=== PATIENT | male | born 1945 | race Asian ===

== ENCOUNTER 2017-01-22 13:26 | Inpatient (IN) ==
[2017-01-22] MEDS ORDERED: Furosemide 40 MG/4 ML VIAL IVP ONE (13:49)
--- NOTE | 2017-01-22 14:01 | Emergency Department Note ---
START Narrative - START START: I examined this patient and my medical decision-making was reviewed with the Resident Physician. I agree with the documented findings, disposition and treatment plan as described except to the extent set forth below. ED attending note: Patient seen with emergency medicine resident Dr. Caban. We independently evaluated the patient and had pbop-ir-zalo contact with the patient. Please see a copy of his note for details of the history and physical, evaluation, management and disposition of this emergency Department patient. Briefly: 71-year-old male presents with leg swelling and shortness of breath. History of volume overload from coronary artery bypass graft surgery done here at [facility] a short while ago. Patient is in poor peripheral IV candidate and is getting a midline ultrasound line. However due to the current nonavailability of beds, we will have discussion with the patient stating he wanted to transfer him. We will see where he would like to go and help make those arrangements. ED workup and transfer pending. Provided 30 minutes of critical care service for this patient.
--- NOTE | 2017-01-22 14:21 | Emergency Department Note ---
Disposition Clinical Impression: S/P CABG (coronary artery bypass graft), Bilateral pleural effusion, NSTEMI ( non-ST elevated myocardial infarction) Disposition: Admitted As Inpatient Condition: Fair Time of Disposition: 17:24 General Adult HPI - General Chief complaint: ED Chest Pain Stated complaint: "ankle swelling, recent by pass, sob" Time Seen by Provider: 01/22/17 14:20 Source: EMS Limitations: physical limitation Nursing Notes Reviewed: Yes Vital Signs Reviewed: Yes - History of Present Illness HPI Narrative: 71-year-old male history of CAD status post CABG with Dr. Espinoza 10 days ago, he also had bilateral thoracentesis for pleural effusions, presents bilateral lower ext swelling, worsening ankle swelling exertional dyspnea, patient states his pain is 4 out of 10 achiness bilateral legs, he is taking 20 mg of furosemide daily, he states that his swelling is worse, over last few days, he was [facility] after hospitalization, he also was most follow-up with Dr. Espinoza in outpatient setting but he has had worsening dyspnea, he denies productive cough or fever. Patient has some chest pain at his incisional site but otherwise no new chest pain Pt Subjective Complaint: Leg Swelling Onset (ago): hour(s) Location: lower extremity Pain Severity: moderate Pain Scale: 5 Quality: aching Improves with: nothing Worsens with: nothing Associated symptoms: Reports: chest pain, cough, malaise, shortness of breath. Denies: diaphoresis, nausea/vomiting - Related Data Previous Rx's Medication Instructions Recorded Aspirin Enteric Coated [Aspirin EC] 81 mg PO DAILY #60 tablet. 01/18/17 Atorvastatin [Lipitor] 80 mg PO HS #60 tablet 01/18/17 Clopidogrel [Plavix] 75 mg PO DAILY #30 tablet 01/18/17 MOM Conc [MILK OF MAGNESIA conc] 10 ml PO DAILY PRN ud.liq 01/18/17 Metoprolol [Lopressor] 12.5 mg PO BID #60 tablet 01/18/17 OxyCODONE/APAP 5/325 [Percocet 1 each PO Q4HR PRN #30 tablet 01/18/17 5/325 MG] Allergies Allergy/AdvReac Type Severity Reaction Status Date / Time No Known Allergies Allergy Verified 12/28/14 09:41 All systems ED: reviewed and negative except as stated. Review of Systems: As Per HPI Constitutional: Reports: as per HPI, weakness. Denies: fever, chills Eyes: Denies: eye pain ENT ED: Denies: ear pain Cardiovascular: Reports: chest pain Respiratory: Reports: as per HPI, dyspnea Gastrointestinal: Denies: abdominal pain, nausea Genitourinary: Denies: urgency, dysuria Musculoskeletal: Denies: back pain Integumentary: Denies: rash Neurological: Denies: headache Psychiatric: Denies: anxiety Past Medical History - Past Medical History Attestation: Yes The following information was validated with the patient. Source: patient, unable to obtain Medical history: Reports: hyperlipidemia, myocardial infarction, other Surgical history: Reports: orthopedic, other (Bilateral bunionectomy), other ( Hemorrhoidectomy) Psychiatric history: Reports: no psych history - Social History Smoking Status: Never smoker Smokeless Tobacco Status: No Alcohol use: Reports: none Drug use: Reports: none Physical Exam Constitutional: in NAD, conversational dyspnea Neck: normal inspection, neck is supple, no JVD Resp: normal chest inspection, diminished with bibasilar rales CV: RRR miudline icsion well healed Extremity: +2 bilateral radial and posterial tibial pulses, +3 pitting edema bilaterally GI: normal inspection, Soft, NTND, no peritoneal signs, no palpable abdominal aortic aneurysm Back: normal inspection, no tenderness to palpation Neuro: A&O3 PERRY MSK: normal inspection, bilateral UE and LE with normal ROM Skin: No rashes, skin warm, dry, intact - General Limitations: physical limitation General appearance: alert Course Course Narrative: 71-year-old male with recent CABG, presents volume overload bilateral pedal edema, conversational dyspnea chest pain CBC troponin BMP basic labs EKG is unremarkable, he has diminished lung sounds at bases I suspect that he has worsening pleural effusions again. - Reevaluation(s) Reevaluation #1: Admitted to Dr. Jackson Time: 17:23 - Consultations Consultation #1: I did discuss the case with Dr. Espinoza the cardiac thoracic surgeon he states that he would prefer to have the patient admitted as he just did open-heart surgery on the patient however if needed be may be transferred to another facility in [place]. After discussing this the hospitalist he again agrees that the patient warrants admission to edema given mother's bed shortage the patient will be placed on an ED hold, admitted to the hospitalist service with the cardiothoracic surgery consultation is yenniuresis with 40 Lasix his pain is in control at this time with morphine and Zofran, the patient has pleural effusions with no severe pericardial effusion Vital Signs Temperature 97.3 F L 01/22/17 13:28 Pulse Rate 73 01/22/17 13:28 Respiratory Rate 16 01/22/17 13:28 Blood Pressure 115/87 01/22/17 13:28 O2 Sat by Pulse Oximetry 93 01/22/17 13:28 Temperature 97.3 F L 01/22/17 13:28 Pulse Rate 68 01/22/17 14:28 Respiratory Rate 16 01/22/17 14:28 Blood Pressure 121/72 01/22/17 14:28 O2 Sat by Pulse Oximetry 96 01/22/17 14:28 Oxygen Delivery Oxygen Delivery Room Air Medical Decision Making - Medical Records Medical records reviewed: Yes I reviewed the patient's medical records. - Lab Data Lab results reviewed: Yes I reviewed the patient's lab results. Result diagrams: 01/22/17 14:04 01/22/17 14:04 Lab Results 01/22/17 01/22/17 01/22/17 Range/Units 14:04 14:04 14:04 WBC 11.3 H (4.3-11.1) K/mcL RBC 3.62 L (4.19-5.50) M/mcL Hgb 10.9 L (12.9-16.9) g/dL Hct 33.4 L (37.5-50.1) % MCV 92.3 (83.0-100.0) fL MCH 30.1 (28.0-33.3) pg MCHC 32.6 (31.6-35.5) g/dL RDW 14.4 (11.5-14.5) % Plt Count 326 D (140-400) K/mcL MPV 10.4 (9.4-12.4) fL Immature Gran % 0.6 (0-4) % Seg Neutrophils % 80.1 % Lymphocytes % 8.8 % Monocytes % 7.6 % Eosinophils % 2.4 % Basophils % 0.5 % Neutrophils # 9.1 H (1.6-8.9) K/mcL Lymphocytes # 1.0 (0.6-4.6) K/mcL Monocytes # 0.9 (0.0-1.3) K/mcL Eosinophils # 0.3 (0.0-0.6) K/mcL Basophils # 0.1 (0.0-0.2) K/mcL PT 13.9 H (9.4-12.1) Seconds INR 1.3 APTT 29.3 (26.0-36.0) Seconds Sodium (136-145) mEq/L Potassium (3.5-4.5) mEq/L Chloride (98-109) mEq/L Carbon Dioxide (19-29) mEq/L BUN (8-26) mg/dL Creatinine (0.72-1.25) mg/dL Est GFR ( Amer) (> 60) Est GFR (Non-Af Amer) (> 60) BUN/Creatinine Ratio (6-26) Glucose (70-99) mg/dL Calculated Osmolality (280-300) Calcium (8.6-10.8) mg/dL Troponin I (0-0.03) ng/mL B-Natriuretic Peptide 1258 H (0-100) pg/mL 01/22/17 01/22/17 Range/Units 14:04 14:04 WBC (4.3-11.1) K/mcL RBC (4.19-5.50) M/mcL Hgb (12.9-16.9) g/dL Hct (37.5-50.1) % MCV (83.0-100.0) fL MCH (28.0-33.3) pg MCHC (31.6-35.5) g/dL RDW (11.5-14.5) % Plt Count (140-400) K/mcL MPV (9.4-12.4) fL Immature Gran % (0-4) % Seg Neutrophils % % Lymphocytes % % Monocytes % % Eosinophils % % Basophils % % Neutrophils # (1.6-8.9) K/mcL Lymphocytes # (0.6-4.6) K/mcL Monocytes # (0.0-1.3) K/mcL Eosinophils # (0.0-0.6) K/mcL Basophils # (0.0-0.2) K/mcL PT (9.4-12.1) Seconds INR APTT (26.0-36.0) Seconds Sodium 131 L (136-145) mEq/L Potassium 4.3 (3.5-4.5) mEq/L Chloride 101 (98-109) mEq/L Carbon Dioxide 22 (19-29) mEq/L BUN 13 (8-26) mg/dL Creatinine 0.72 (0.72-1.25) mg/dL Est GFR ( Amer) > 60 (> 60) Est GFR (Non-Af Amer) > 60 (> 60) BUN/Creatinine Ratio 18 (6-26) Glucose 87 (70-99) mg/dL Calculated Osmolality 271 L (280-300) Calcium 8.3 L (8.6-10.8) mg/dL Troponin I 0.92 H* (0-0.03) ng/mL B-Natriuretic Peptide (0-100) pg/mL - Radiology Data Radiology results reviewed: Yes I reviewed the patient's radiology results. Chest X-Ray 01/22/17 13:47 IMPRESSION: 1. Bilateral pleural effusions left greater than right with left basilar atelectasis and/or infiltrate. 2. Cardiomegaly without overt failure. D/ / Duke Shell MD / Duke Shell MD Interpreting Provider: Duke Shell MD Chest CT 01/22/17 15:23 IMPRESSION: Bilateral pleural effusions with associated basilar airspace disease, left greater than right. Airspace disease likely represents atelectasis, however superimposed pneumonia is a consideration in the appropriate clinical setting. Fusiform ectasia of the ascending aorta, measuring up to 4.3 cm. This appears similar to the prior examination of 12/28/2014. Several subcentimeter pulmonary nodules as detailed above. These are unchanged from the 12/28/2014 study and are most compatible with a benign etiology. D/ / 01/22/2017 16:44:33 Logan Rasheed MD / ragini Interpreting Provider: Logan Rasheed MD - EKG Data EKG #1 EKG attestation: Yes I reviewed and interpreted this EKG. EKG shows normal: sinus rhythm Rate: normal (70 bpm [place] 151 QRS 97 QTc [address] segment elevations or depressions.) Rhythm: NSR [place]/QRS: normal - Core Measures AMI Core Measures Followed: No
[2017-01-22 14:23] LABS: INR 1.3; Prothrombin Time 13.9 Seconds (9.4-12.1)
[2017-01-22 14:25] LABS: Activated Partial Thrombo Time 29.3 Seconds (26.0-36.0)
[2017-01-22 14:26] LABS: BUN/Creatinine Ratio 18 (6-26); Blood Urea Nitrogen 13 mg/dL (8-26); Calcium 8.3 mg/dL (8.6-10.8); Carbon Dioxide 22 mEq/L (19-29); Chloride 101 mEq/L (98-109); Glucose 87 mg/dL (70-99); Osmolality,Calculated 271 (280-300); Potassium 4.3 mEq/L (3.5-4.5); Sodium 131 mEq/L (136-145); eGFR For African Americans > 60 (> 60); eGFR For Non-African Americans > 60 (> 60)
[2017-01-22 14:35] LABS: Basophils # 0.1 K/mcL (0.0-0.2); Basophils % 0.5 %; Eosinophils # 0.3 K/mcL (0.0-0.6); Eosinophils % 2.4 %; Hematocrit 33.4 % (37.5-50.1); Hemoglobin 10.9 g/dL (12.9-16.9); Immature Granulocytes % 0.6 % (0-4); Lymphocytes % 8.8 %; Mean Corpuscular HGB Conc 32.6 g/dL (31.6-35.5); Mean Corpuscular Hemoglobin 30.1 pg (28.0-33.3); Mean Corpuscular Volume 92.3 fL (83.0-100.0); Mean Platelet Volume 10.4 fL (9.4-12.4); Monocytes # 0.9 K/mcL (0.0-1.3); Monocytes % 7.6 %; Neutrophils # 9.1 K/mcL (1.6-8.9); Platelet Count 326 K/mcL (140-400); Red Blood Count 3.62 M/mcL (4.19-5.50); Red Cell Distribution Width 14.4 % (11.5-14.5); Segmented Neutrophils % 80.1 %
[2017-01-22] MEDS ORDERED: Naloxone 0.4 MG/ML INJ IVP PRN ×2 (16:06→16:07)
[2017-01-22] MEDS ORDERED: Acetaminophen 325 MG TABLET PO PRN (16:07)
[2017-01-22] MEDS ORDERED: Ondansetron 4 MG/2 ML VIAL IVP PRN (16:07)
[2017-01-22] MEDS ORDERED: *HR* Promethazine 25 MG/ML VIAL IVP PRN (16:07)
[2017-01-22] MEDS ORDERED: Ondansetron 4 MG/2 ML VIAL IVP ONE (16:09)
[2017-01-22] MEDS ORDERED: *HR* Morphine 2 MG/ML SYRINGE IVP ONE (16:09)
[2017-01-22] MEDS ORDERED: Aspirin 325 MG TABLET PO ONE (17:24)
--- NOTE | 2017-01-22 17:56 | Internal Med History&Physical ---
Date of Encounter: 01/22/17 Time of Encounter: 17:52 Assessment and Plan (1) Diastolic CHF, acute on chronic Current visit: Yes Status: Acute Will admit the pt into Tele Reviewed his 2 D Echo fro 01/11 before CABG - showed LVEF 55-60%, Mild diastolic CHF Will start him on IV diuresis with Lasix 40mg BID strict I & O CTS consulted He was Metoprolol before.. will switch him to PO Coreg also will start him on low dose ACEI if his BP allows cont ASA + Statin (2) NSTEMI (non-ST elevated myocardial infarction) Current visit: Yes Status: Acute Mostly demand ischemia No acute ischemic EKG changes Reviewed EKG by pepito - TYR HR 70, No ST elevation or depression will get 2 D Echo in AM cont trending on Troop no need of anti coag at this point (3) Pneumonia Current visit: Yes Status: Acute His CT shoed b/l lower lobe infiltrates he dies have cough with yellowish expectoration Mostly bacterial PNA will start him on empirical abx Levaquin and monitor his symptoms closely will place him on O2 + bronco dilators PRN Qualifiers: Qualified Code(s): J18.9 - Pneumonia, unspecified organism (4) Chest pain Current visit: No Status: Acute see above Qualifiers: Chest pain type: unspecified Qualified Code(s): R07.9 - Chest pain, unspecified (5) Hyperlipidemia Current visit: No Status: Acute on statin Qualifiers: Hyperlipidemia type: mixed hyperlipidemia Qualified Code(s): E78.2 - Mixed hyperlipidemia (6) S/P CABG (coronary artery bypass graft) Current visit: Yes Status: Acute Recent CABG x 4 consulted CTS will get 2 D Echo (7) Bilateral pleural effusion Current visit: Yes Status: Acute Due to CHF exacerbation recent s/p b/l thoracocentesis on 01/16 no need of thoracocentesis now cont IV diuresis cont close monitoring Internal Medicine - H&P: HPI Chief complaint: Shortness of breath Admitted From: Emergency Dept Plans for Post Hospital Care: Transfer Inp Rehab Fac History of present illness: Mr. San is a 71 year old male with known pMH of HTN, HLD, CAD recent s/p CABG x 4 01/12/17, mild diastolic CHF , who also happened to have large b/l pleural effusion for which he had b/l thorcocentesis done on 01/16/17 and d/c d SNF for short term PT / OT. Now he is brought back to ER c/o progressively worsening SOB , MCDONNELL and 3+ pitting in edema in both legs. He also mentioned some mild intermittent chest pain located in the mid sternal region, non radiating 4/10 in severity. Denied any active CP now. He had further work up done in the ER, his Troponin slightly elevated at 0.[address] of chest showed vascular congestion, b/l pleural effusion and b/l lower lobe infiltrates. He also mentioned intermittent cough with greenish and yellowish expectoration. Past Med Surg Social Fam HX - Past Medical History Medical history: hyperlipidemia, hypertension, myocardial infarction, other Psychiatric history: no psych history - Past Surgical History Surgical History: coronary bypass (CABG), orthopedic, other (Bilateral bunionectomy), other (Hemorrhoidectomy) - Social History Smoking Status: Never smoker Smokeless Tobacco Status: No Alcohol use: none Drug use: none - Family History Mother Living Status: Hx Family Cardiac Disorders: Yes (CAD/OR) Father Living Status: Hx Family Cardiac Disorders: Yes Hx Family Cancer: Yes (colon cancer) Brother Living Status: Still Living Hx Family Cancer: Yes (colon cancer) Sister Hx Family Cancer: Yes (colon cancer) Hx Family Autoimmune Disorders: Yes (RA) Internal Medicine - H&P: Meds Aspirin Enteric Coated [Aspirin EC] 81 mg PO DAILY #60 tablet. 01/18/17 [Rx] Atorvastatin [Lipitor] 80 mg PO HS #60 tablet 01/18/17 [Rx] Clopidogrel [Plavix] 75 mg PO DAILY #30 tablet 01/18/17 [Rx] MOM Conc [MILK OF MAGNESIA conc] 10 ml PO DAILY PRN ud.liq 01/18/17 [Rx] Metoprolol [Lopressor] 12.5 mg PO BID #60 tablet 01/18/17 [Rx] OxyCODONE/APAP 5/325 [Percocet 5/325 MG] 1 each PO Q4HR PRN #30 tablet 01/18/17 [Rx] 3 Allergy/AdvReac Type Severity Reaction Status Date / Time No Known Allergies Allergy Verified 12/28/14 09:41 All Systems PM: A 10-system review of systems was performed and is negative for pertinent findings except as documented above in the HPI. Review of systems: All systems reviewed everything is benign except the systems and symptoms I mentioned in HPI. - Constitutional Vitals: Temp Pulse Resp BP Pulse Ox 97.3 F L 77 16 103/84 97 01/22/17 13:28 01/22/17 17:00 01/22/17 17:00 01/22/17 17:00 01/22/17 17:00 General appearance: Present: A&O X 3, no acute distress, answers questions appropriately - Head Head exam: Present: atraumatic, normal inspection - Neck Neck exam general surgery: Present: supple - Respiratory Respiratory exam: Present: decreased breath sounds, rales (++), wheezes (mild). Absent: rhonchi - Cardiovascular Cardiovascular exam: Present: +S1, +S2, tachycardia. Absent: systolic murmur - GI/Abdominal GI/Abdominal exam: Present: soft. Absent: distended, rebound, rigid, tenderness - Extremities Exam Extremities exam: Present: pedal edema (3 + pitting edema b/l). Absent: calf tenderness, tenderness - Back Exam Back exam: Absent: CVA tenderness (L), CVA tenderness (R) - Neurological Exam Neurological exam: Present: alert, oriented X3 - Psychiatric Psychiatric exam: Present: normal affect, normal mood - Skin Skin exam: Absent: rash Internal Med - H&P Results - Labs CBC & Chem 7: 01/22/17 14:04 01/22/17 14:04
[2017-01-22] MEDS ORDERED: Ipratropium/Albuterol Neb 3 ML IH PRN (18:31)
[2017-01-22] MEDS: Levofloxacin 750 MG/150 ML 750 MG/150 ML BAG IVPB SCH (21:29)
[2017-01-22] MEDS: Furosemide 40 MG/4 ML VIAL IVP SCH (21:59)
[2017-01-22] MEDS: Aspirin Enteric Coated 81 MG Tablet PO SCH (22:16)
[2017-01-23] MEDS ORDERED: Nitroglycerin 0.4 MG TAB.SUBL SL PRN (00:22)
[2017-01-23] MEDS ORDERED: *HR* Heparin 5,000 UNIT/ML VIAL IVP PRN ×2 (00:25)
[2017-01-23] MEDS ORDERED: *HR* Heparin 5,000 UNIT/ML VIAL IVP ONE (00:25)
[2017-01-23] MEDS ORDERED: Heparin 25,000 UNIT/500 ML D5W 25,000 UNIT/500 ML MLS IVC SCH (00:30)
--- NOTE | 2017-01-23 00:40 | Event Note ---
Date of Encounter: 01/23/17 Time of Encounter: 00:15 Informed by RN that patient's troponin is 1.14. This is bumped up slightly from the previous troponin at 0.19. Initial EKG shows sinus rhythm with no acute ST-T changes. Repeat EKG shows T-wave inversions in lateral leads v3-v6 and in leads II and III. On examination patient is awake and alert. Not in any distress. States his shortness of breath has improved. Complains of mild substernal chest pain. States the pain has improved. He is hemodynamically stable. I have discussed with on-call dehydrator operator Dr. Eduard Kirby, and he advised to start IV heparin drip. We will continue to trend troponin and repeat EKG in the morning. Cardiothoracic surgery has been consulted from the ED.
[2017-01-23 01:14] LABS: Hematocrit 32.4 % (37.5-50.1); Hemoglobin 10.9 g/dL (12.9-16.9); Mean Corpuscular HGB Conc 33.6 g/dL (31.6-35.5); Mean Corpuscular Hemoglobin 30.2 pg (28.0-33.3); Mean Corpuscular Volume 89.8 fL (83.0-100.0); Mean Platelet Volume 9.9 fL (9.4-12.4); Platelet Count 379 K/mcL (140-400); Red Blood Count 3.61 M/mcL (4.19-5.50); Red Cell Distribution Width 14.4 % (11.5-14.5)
[2017-01-23] MEDS ORDERED: 0.9 % Sodium Chloride 1,000 ML ONE (01:14)
[2017-01-23 01:20] LABS: INR 1.4; Prothrombin Time 14.8 Seconds (9.4-12.1)
[2017-01-23 01:22] LABS: Activated Partial Thrombo Time 29.9 Seconds (26.0-36.0)
[2017-01-23] MEDS: *HR* Morphine 2 MG/ML SYRINGE IVP PRN ×3 (01:47→14:47)
[2017-01-23 06:11] LABS: Basophils # 0.1 K/mcL (0.0-0.2); Basophils % 0.6 %; Eosinophils # 0.5 K/mcL (0.0-0.6); Eosinophils % 4.1 %; Hemoglobin 10.9 g/dL (12.9-16.9); Immature Granulocytes % 0.5 % (0-4); Lymphocytes # 1.1 K/mcL (0.6-4.6); Lymphocytes % 9.3 %; Mean Corpuscular Volume 90.9 fL (83.0-100.0); Mean Platelet Volume 10.6 fL (9.4-12.4); Monocytes # 0.9 K/mcL (0.0-1.3); Neutrophils # 9.5 K/mcL (1.6-8.9); Platelet Count 378 K/mcL (140-400); Red Blood Count 3.63 M/mcL (4.19-5.50); Red Cell Distribution Width 14.4 % (11.5-14.5); Segmented Neutrophils % 78.5 %
[2017-01-23 06:40] LABS: Bilirubin,Urine Negative (Negative); Blood,Urine Negative (Negative); Clarity,Urine Clear (Clear); Color,Urine Yellow (Yellow); Glucose,Urine (UA) Normal (Normal); Ketones,Urine Negative (Negative); Leukocyte Esterase,Urine Negative (Negative); Nitrite,Urine Negative (Negative); Protein,Urine Negative (Neg-Trace); Specific Gravity,Urine 1.013 (1.010-1.025); Urobilinogen,Urine Normal (Normal)
[2017-01-23 06:41] LABS: Alanine Aminotransferase 26 Units/L (0-55); Albumin 2.3 g/dL (3.5-5.0); Albumin/Globulin Ratio 0.6 (1.1-2.2); Alkaline Phosphatase 76 Units/L (38-126); Aspartate Amino Transferase 22 Units/L (5-34); BUN/Creatinine Ratio 14 (6-26); Bilirubin,Total 1.2 mg/dL (0.2-1.2); Blood Urea Nitrogen 11 mg/dL (8-26); Calcium 8.3 mg/dL (8.6-10.8); Carbon Dioxide 26 mEq/L (19-29); Chloride 98 mEq/L (98-109); Chol/HDL Ratio 4.3 (0-4.9); Cholesterol 112 mg/dL (< 200); Glucose 95 mg/dL (70-99); HDL Cholesterol 26 mg/dL (40-59); LDL Cholesterol,Calculated 74 mg/dL (0-99); Magnesium 1.7 mg/dL (1.6-2.6); Osmolality,Calculated 271 (280-300); Potassium 4.1 mEq/L (3.5-4.5); Sodium 131 mEq/L (136-145); Total Protein 6.3 g/dL (6.0-8.3); Triglycerides 60 mg/dL (< 150); eGFR For African Americans > 60 (> 60); eGFR For Non-African Americans > 60 (> 60)
[2017-01-23] MEDS: Aspirin Enteric Coated 81 MG Tablet PO SCH (08:51)
[2017-01-23] MEDS: Furosemide 40 MG/4 ML VIAL IVP SCH ×2 (08:51→16:29)
--- NOTE | 2017-01-23 09:06 | Cardiology Consult Note ---
<ValDerek - Last Filed: 01/23/17 16:29> Date of Encounter: 01/23/17 Time of Encounter: 09:05 Assessment and Plan (1) Diastolic CHF, acute on chronic Current Visit: Yes Status: Acute Per Cardiology: BNP noted 1200's. Last echo showed mild diastolic dysfxn. S/p recent CABG. CXR and CT results: Chest X-Ray 01/22/17 13:47 IMPRESSION: 1. Bilateral pleural effusions left greater than right with left basilar atelectasis and/or infiltrate. 2. Cardiomegaly without overt failure. Chest CT 01/22/17 15:23 IMPRESSION: Bilateral pleural effusions with associated basilar airspace disease, left greater than right. Airspace disease likely represents atelectasis, however superimposed pneumonia is a consideration in the appropriate clinical setting. Fusiform ectasia of the ascending aorta, measuring up to 4.3 cm. This appears similar to the prior examination of 12/28/2014. Several subcentimeter pulmonary nodules as detailed above. These are unchanged from the 12/28/2014 study and are most compatible with a benign etiology. Net I&O -1915ml. On Lasix 40mg IV BID. Appears improved with diuresis. Seen by CT surgery-- had bilateral thoracentesis during last stay. CT following. (2) Bilateral pleural effusion Current Visit: Yes Status: Chronic Per Cardiology: Noted during last stay. CT following. (3) NSTEMI (non-ST elevated myocardial infarction) Current Visit: Yes Status: Acute Per Cardiology:: Do not suspect NSTEMI-- overall trop downward trend since acute NE and CABG. Mild trop 0.92, 1.14, and 1.11. CP atypical-- occuring at rest and worse with deep inspiration. Current echo shows EF 50-55%. Will dc IV Hep gtt. No cardiac rehab c/s warranted this stay.On asa, plavix, BB, statin. Discussed with Dr. Fiore. (4) S/P CABG (coronary artery bypass graft) Current Visit: Yes Status: Chronic Per Cardiology: Recent acute NE with peak troponin in the 20s. Underwent CABG 4 with SVG to diagonal 1, sequential SVG to ramus and to OM 1 and SVG to PDA. Discussion w patient/family: The assessment and plan as outlined above was discussed with the patient and/or family members who expressed understanding and agreement. All questions were answered. Thank you for involving us in the care of your patient. Please call with any questions. History of Present Illness Consult date: 01/23/17 Requesting physician: Rolando Caban Consult reason: Elevated Trop Chief complaint: SOB History of present illness: Mr. San is a 71 year old male with a relevant past medical history of CAD with history of positive stress test in December 2014 with previous refusal for catheterization, HTN, and HLD. Cardiology c/s for CP, SOB, edema, elevated trops. Patient reports recent CABG and transferred to rehabilitation. He reports increased stress of breath and "CHF exacerbation "over the past few days. He reports he's been experiencing exertional chest pain and chest pain at rest. He reports chest pain symptoms and short of breath have improved during hospital stay with diuresis. He reports chest pain currently with deep inspiration. He denies any palpitations, dizziness, syncope, falls. Reports continues to experience increased swelling to bilateral lower extremities. He does report he was on Lasix at rehabilitation facility. Past Med Surg Social Fam HX - Past Medical History Attestation: Yes The following information was validated with the patient. Source: patient, old records reviewed Medical history: hyperlipidemia, hypertension, myocardial infarction, other Psychiatric history: no psych history - Past Surgical History Surgical History: coronary bypass (CABG), orthopedic, other, other - Social History Smoking Status: Never smoker Smokeless Tobacco Status: No Alcohol use: none Drug use: none - Family History Mother Living Status: Cause of : Heart attack Hx Family Cardiac Disorders: Yes (CAD/[place]) Father Living Status: Hx Family Cardiac Disorders: Yes Hx Family Cancer: Yes Hx Family GI Disorders: Yes Brother Living Status: Still Living Hx Family Cancer: Yes Hx Family GI Disorders: Yes Sister Living Status: Still Living Hx Family Cancer: Yes Hx Family GI Disorders: Yes Hx Family Autoimmune Disorders: Yes (RA) Medications and Allergies Aspirin Enteric Coated [Aspirin EC] 81 mg PO DAILY #60 tablet. 01/18/17 [Rx] Atorvastatin [Lipitor] 80 mg PO HS #60 tablet 01/18/17 [Rx] Clopidogrel [Plavix] 75 mg PO DAILY #30 tablet 01/18/17 [Rx] MOM Conc [MILK OF MAGNESIA conc] 10 ml PO DAILY PRN ud.liq 01/18/17 [Rx] Metoprolol [Lopressor] 12.5 mg PO BID #60 tablet 01/18/17 [Rx] OxyCODONE/APAP 5/325 [Percocet 5/325 MG] 1 each PO Q4HR PRN #30 tablet 01/18/17 [Rx] 3 Allergy/AdvReac Type Severity Reaction Status Date / Time No Known Allergies Allergy Verified 12/28/14 09:41 All Systems Review: A 10-system review of systems was performed and is negative for pertinent findings except as documented above in the HPI. - Constitutional Constitutional: fatigue - Cardiovascular Cardiovascular: as per HPI, chest pain at rest, dyspnea at rest, dyspnea on exertion, leg edema Physical Examination Vital Signs, Last 4 Hours Temp Pulse Resp BP Pulse Ox 01/23/17 08:43 85 105/73 01/23/17 06:54 98.7 F 78 16 98/70 95 General: Conversant, No Apparent Distress HEENT: Atraumatic, Normocephaly, Mucus Membranes Moist Cardiac: Reg Rate and Rhythm, Normal S1 and S2, No Murmur Lungs: Normal Breath Sounds, Other (Diminished breath sounds to bilateral bases) Neuro: Alert and responsive, No focal deficits noted Abdomen: Soft, Non-Tender Skin: Other (Mid sternal incision site well approximated, no erythema, no drainage, sternum stable; bilateral vein harvest sites were approximated with no erythema or drainage) Extremities: Normal Pulses, Other (+1-2 pitting edema to bilateral LE) Results 01/23/17 05:10 01/23/17 05:10 Lab Results Laboratory Tests 01/10/17 01/10/17 01/11/17 17:01 18:15 07:27 Hgb 12.4 L D INR Troponin I 24.46 H* B-Natriuretic Peptide 417 H Albumin 01/15/17 01/22/17 01/22/17 04:07 14:04 14:04 Hgb 7.6 L 10.9 L INR Troponin I B-Natriuretic Peptide 1258 H Albumin 01/22/17 01/22/17 01/23/17 14:04 22:55 01:03 Hgb INR 1.4 Troponin I 0.92 H* 1.14 H* B-Natriuretic Peptide Albumin 01/23/17 01/23/17 01/23/17 05:10 05:10 05:10 Hgb INR Troponin I 1.11 H* B-Natriuretic Peptide 1167 H Albumin 2.3 L ITS Impressions Chest X-Ray 01/22/17 13:47 IMPRESSION: 1. Bilateral pleural effusions left greater than right with left basilar atelectasis and/or infiltrate. 2. Cardiomegaly without overt failure. D/ / Duke Shell MD / Duke Shell MD Interpreting Provider: Duke Shell MD Chest CT 01/22/17 15:23 IMPRESSION: Bilateral pleural effusions with associated basilar airspace disease, left greater than right. Airspace disease likely represents atelectasis, however superimposed pneumonia is a consideration in the appropriate clinical setting. Fusiform ectasia of the ascending aorta, measuring up to 4.3 cm. This appears similar to the prior examination of 12/28/2014. Several subcentimeter pulmonary nodules as detailed above. These are unchanged from the 12/28/2014 study and are most compatible with a benign etiology. D/ / 01/22/2017 16:44:33 Logan Rasheed MD / ragini Interpreting Provider: Logan Rasheed MD Echocardiogram 01/23/17 18:06 Impressions: LVEF 50-55%. Normal LV chamber size and wall thickness. Mild segmental left ventricular systolic dysfunction. Mild left ventricular diastolic dysfunction. Normal right ventricular structure and function. No evidence of PFO with agitated saline contrast. No evidence of pulmonary hypertension. No significant valvular dysfunction. Pleural effusion noted. Aortic root appeared upper limits of normal in size - 3.93 cm at tubular portion. Left Ventricular Wall Motion: Rest Echo Findings The basal inferior lateral wall was hypokinetic. The mid inferior, basal inferior and basal inferior septal thomas were akinetic. All other wall segments showed normal motion. Findings: Study Quality * Technically adequate exam. ECG Findings * Normal sinus rhythm. Left Ventricle * LVEF 50-55%. * Normal LV chamber size and wall thickness. * Mild segmental left ventricular systolic dysfunction. * Mild left ventricular diastolic dysfunction. Right Ventricle * Normal right ventricular structure and function. Left Atrium * Moderately dilated left atrium. Right Atrium * Mildly dilated right atrium. Interatrial Septum * No evidence of PFO with agitated saline contrast. Aortic Valve * Trileaflet aortic valve with normal function. * No aortic regurgitation. * No aortic stenosis. Mitral Valve * Normal mitral valve structure and function. * No mitral stenosis. * Trace mitral regurgitation. Tricuspid Valve * Normal tricuspid valve structure and function. * Trace tricuspid regurgitation. * No evidence of pulmonary hypertension. Pulmonic Valve * Normal pulmonic valve structure and function. * Trace pulmonic regurgitation. Aorta * Aortic root appeared upper limits of normal in size - 3.93 cm at tubular portion. Pericardium * The pericardium appears normal. IVC * Normal IVC dimensions and inspiratory collapse. Pulmonary Artery * Normal visualized portions of the main pulmonary artery. - Imaging and Cardiology Chest Xray: report reviewed Echo: report reviewed Cardiac cath: report reviewed - EKG Interpretation EKG results cardiology: personally reviewed (comparable to recent ECG), sinus rhythm Consult Discharge Plan - Plan Referrals: Dylon Enamorado MD [Primary Care Provider] - (Patient will follow up with [facility]CF PCP until dischrged from there) <Stephanie Fiore - Last Filed: 01/24/17 10:22> Date of Encounter: 01/24/17 - Attending Attestation I have personally performed a face to face evaluation on this patient. I have reviewed and agree with the care plan. History and Exam by me shows: 71-year-old male status post CABG 41 week ago presents with worsening shortness of breath mild to moderate hypervolemia and an elevated nonischemic trend troponin. His current post CABG echocardiogram reveals ejection fraction of 50-55% slightly down from his previous echocardiogram 55-60%. On exam he is hypervolemic with bilateral lower extremity edema mild decrease entry bibasilar. He has on chest x-ray bilateral pleural effusions which are small currently improving in regards to his symptoms of shortness of breath. He does describe chest pain however it is typical nonischemic pleuritic type chest pain mostly positional likely related to his wound. We will continue to diurese gently and monitor his symptoms for improvement. He will continue heparin for 24 hours and if no worsening symptoms and troponins continue to be flat will discontinue. Assessment and Plan Discussion w patient/family: The assessment and plan as outlined above was discussed with the patient and/or family members who expressed understanding and agreement. All questions were answered. Thank you for involving us in the care of your patient. Please call with any questions. History of Present Illness History of present illness: Mr. San is a 71 year old male All Systems Review: A 10-system review of systems was performed and is negative for pertinent findings except as documented above in the HPI. Physical Examination Vital Signs, Last 4 Hours Temp Pulse Resp BP Pulse Ox 01/24/17 09:39 78 98/58 01/24/17 06:50 97.9 F 78 17 87/56 96 Results 01/24/17 09:24 01/24/17 04:14 Lab Results 01/23/17 01/24/17 01/24/17 16:21 04:14 04:14 WBC 9.6 Hgb 10.4 L Hct 31.9 L Plt Count 383 INR APTT 65.6 H Sodium 130 L Potassium 4.1 Chloride 99 Carbon Dioxide 25 BUN 16 Creatinine 0.82 Glucose 100 H Calcium 8.5 L Magnesium 1.7 01/24/17 01/24/17 09:24 09:24 WBC 8.3 Hgb 10.9 L Hct 33.6 L Plt Count 396 INR 1.4 APTT 30.8 D Sodium Potassium Chloride Carbon Dioxide BUN Creatinine Glucose Calcium Magnesium
--- NOTE | 2017-01-23 10:01 | Cardiothoracic Consult Note ---
Date of Encounter: 01/23/17 Time of Encounter: 10:01 Assessment and Plan (1) Diastolic CHF, acute on chronic Current Visit: Yes Status: Acute Patient is a 71-year-old man with known CAD, hypertension, and hypercholesterolemia who underwent CABG 4 on January 13, 2017. He was discharged to an extended care facility on POD #6 and had been ambulating without difficulty. Over the holiday weekend the patient noticed increasing shortness of breath and dyspnea on exertion as well as bilateral lower extremity edema. He was evaluated by the [facility] of care provider on Sunday, January 22, 2017 and told that he had right-sided heart failure. He was transferred to [facility] for further care. The patient did have a history of diastolic failure noted on his preoperative echocardiogram. The patient is undergoing diuresis and beta arlin has been changed to Coreg. An ACEI will be added to help treat his heart failure. The assessment and plan as outlined above was discussed with the patient and/or family members who expressed understanding and agreement. All questions were answered. - History of Present Illness Consult date: 01/22/17 Requesting physician: Wilma Clayton Consult reason: Lower extremity edema Chief complaint: Shortness of breath, dyspnea on exertion History of present illness: Mr. San is a 71 year old otherwise healthy man who underwent CABG 4 on January 12, 2017. He was discharged to an extended care facility on December; however, this had progressive shortness of breath, dyspnea exertion, and bilateral lower extremity edema. He was evaluated by the [facility] health care provider and told that he had right heart failure. The patient was evaluated at [facility] emergency department yesterday and admitted for congestive heart failure. He underwent a chest CT which showed small bilateral pleural effusions with the left side being larger than the right side. There was no evidence of pericardial effusion. I have been asked to evaluate the patient's lower extremity edema. Past Med Surg Social Fam HX - Past Medical History Medical history: CHF, coronary artery disease, hyperlipidemia, hypertension, myocardial infarction, other Psychiatric history: no psych history - Past Surgical History Surgical History: coronary bypass (CABG), orthopedic, other, other - Social History Smoking Status: Never smoker Smokeless Tobacco Status: No Alcohol use: none Drug use: none Occupational status: retired Current living situation: [facility] Activity Level: Independent ambulation Recent Out of Country Travel Within the Last 8 Weeks: No Exposure or Possible Exposure to Illness During Travel: No - Family History Mother Living Status: Cause of : Heart attack Hx Family Cardiac Disorders: Yes (CAD/[place]) Father Living Status: Hx Family Cardiac Disorders: Yes Hx Family Cancer: Yes Hx Family GI Disorders: Yes Brother Living Status: Still Living Hx Family Cancer: Yes Hx Family GI Disorders: Yes Sister Living Status: Still Living Hx Family Cancer: Yes Hx Family GI Disorders: Yes Hx Family Autoimmune Disorders: Yes (RA) Medications and Allergies Aspirin Enteric Coated [Aspirin EC] 81 mg PO DAILY #60 tablet.dr 01/18/17 [Rx] Atorvastatin [Lipitor] 80 mg PO HS #60 tablet 01/18/17 [Rx] Clopidogrel [Plavix] 75 mg PO DAILY #30 tablet 01/18/17 [Rx] MOM Conc [MILK OF MAGNESIA conc] 10 ml PO DAILY PRN ud.liq 01/18/17 [Rx] Metoprolol [Lopressor] 12.5 mg PO BID #60 tablet 01/18/17 [Rx] OxyCODONE/APAP 5/325 [Percocet 5/325 MG] 1 each PO Q4HR PRN #30 tablet 01/18/17 [Rx] 3 Allergy/AdvReac Type Severity Reaction Status Date / Time No Known Allergies Allergy Verified 12/28/14 09:41 All Systems Review: A 10-system review of systems was performed and is negative for pertinent findings except as documented above in the HPI. Physical Examination Vital Signs, Last 4 Hours Temp Pulse Resp BP Pulse Ox 01/23/17 08:43 85 105/73 01/23/17 06:54 98.7 F 78 16 98/70 95 General: Conversant, No Apparent Distress HEENT: Atraumatic, Normocephaly, Trachea midline Neck: No JVD, Normal carotid pulses Cardiac: Reg Rate and Rhythm, Normal S1 and S2, No Murmur Lungs: Decreased breath sounds (Both bases.) Neuro: Alert and responsive, No focal deficits noted, Motor nerves intact, Sensory nerves intact Vascular: Normal capillary refill Abdomen: Soft, Non-tender Musculoskeletal: No Chest Wall Tenderness Extremities: No Clubbing, No Cyanosis, No Edema, Normal Pulses Results 01/23/17 05:10 01/23/17 05:10 Lab Results, Last 24 hours 01/22/17 01/23/17 01/23/17 22:55 01:03 01:03 WBC 11.0 Hgb 10.9 L Hct 32.4 L Plt Count 379 INR 1.4 APTT 29.9 Sodium Potassium Chloride Carbon Dioxide BUN Creatinine Glucose Calcium Magnesium Total Bilirubin AST ALT Alkaline Phosphatase Troponin I 1.14 H* B-Natriuretic Peptide 01/23/17 01/23/17 01/23/17 05:10 05:10 05:10 WBC 12.1 H Hgb 10.9 L Hct 33.0 L Plt Count 378 INR APTT Sodium 131 L Potassium 4.1 Chloride 98 Carbon Dioxide 26 BUN 11 Creatinine 0.77 Glucose 95 Calcium 8.3 L Magnesium 1.7 Total Bilirubin 1.2 AST 22 ALT 26 Alkaline Phosphatase 76 Troponin I 1.11 H* B-Natriuretic Peptide 01/23/17 05:10 WBC Hgb Hct Plt Count INR APTT Sodium Potassium Chloride Carbon Dioxide BUN Creatinine Glucose Calcium Magnesium Total Bilirubin AST ALT Alkaline Phosphatase Troponin I B-Natriuretic Peptide 1167 H - Imaging Chest Xray: image reviewed (Stable cardiomegaly. Bilateral pleural effusions.) Consult Discharge Plan - Plan Referrals: Dylon Enamorado MD [Primary Care Provider] -
[2017-01-23] MEDS: *HR* HYDROcodone/Acet 5/325 mg TABLET PO PRN ×2 (11:59→21:52)
--- NOTE | 2017-01-23 17:36 | Internal Med Progress Note ---
Date of Encounter: 01/23/17 Time of Encounter: 17:34 - Assessment and plan (1) Diastolic CHF, acute on chronic Current Visit: Yes Status: Acute Assessment and plan: Reviewed repeat 2 D Echo showed normal LVEF 50-55%, Mild diastolic dysfunction Cont IV diuresis with Lasix 40 BID Out put -1900 in 24 hrs cont Coreg, ASA, Plavix, Statin If BP allows will start him on low dose ACEI (2) NSTEMI (non-ST elevated myocardial infarction) Current Visit: Yes Status: Acute Assessment and plan: Troponin peaked at 1.14 and trending down Echo did not show any wall motion abnormalities Mostly demand ischemia no anti coag needed... will d/c heparin card consulted (3) Pneumonia Current Visit: Yes Status: Acute Assessment and plan: mostly bacterial improving cont empirical abx Levaquin Qualifiers: Qualified Code(s): J18.9 - Pneumonia, unspecified organism (4) Chest pain Current Visit: No Status: Ruled-out Assessment and plan: Due to CHF exacerbation Qualifiers: Chest pain type: unspecified Qualified Code(s): R07.9 - Chest pain, unspecified (5) Hyperlipidemia Current Visit: No Status: Acute Assessment and plan: on statin Qualifiers: Hyperlipidemia type: mixed hyperlipidemia Qualified Code(s): E78.2 - Mixed hyperlipidemia (6) S/P CABG (coronary artery bypass graft) Current Visit: Yes Status: Chronic (7) Bilateral pleural effusion Current Visit: Yes Status: Chronic Assessment and plan: due to CHF cont Diuresis - Subjective Interval history: Mr. San is a 71 year old male with known pMH of HTN, HLD, CAD recent s/p CABG x 4 01/12/17, mild diastolic CHF , who also happened to have large b/l pleural effusion for which he had b/l thorcocentesis done on 01/16/17 and d/c d SNF for short term PT / OT. Now he is brought back to ER c/o progressively worsening SOB , MCDONNELL and 3+ pitting in edema in both legs. Pt was admitted in the hospital and started him on IV diuresis. His symptoms improved now. Still has 2+ pitting in edema in both legs. No CP. - Constitutional Vitals: Temp Pulse Resp BP Pulse Ox 98.4 F 86 17 100/60 94 01/23/17 15:30 01/23/17 15:36 01/23/17 15:36 01/23/17 15:36 01/23/17 15:36 General appearance: Present: A&O X 3, no acute distress, answers questions appropriately - Head Head exam: Present: atraumatic, normal inspection - Neck Neck exam general surgery: Present: supple - Respiratory Respiratory exam: Present: decreased breath sounds. Absent: rales, respiratory distress, rhonchi, wheezes - Cardiovascular Cardiovascular exam: Present: RRR, +S1, +S2. Absent: systolic murmur - GI/Abdominal GI/Abdominal exam: Present: normal bowel sounds, soft. Absent: rebound, rigid, tenderness - Extremities Exam Extremities exam: Present: pedal edema (2+). Absent: calf tenderness, tenderness - Back Exam Back exam: Absent: CVA tenderness (L), CVA tenderness (R) - Psychiatric Psychiatric exam: Present: normal affect, normal mood Internal Medicine: Result - Labs CBC & Chem 7: 01/23/17 05:10 01/23/17 05:10 Labs: Short CBC 01/23/17 01/23/17 Range/Units 01:03 05:10 WBC 11.0 12.1 H (4.3-11.1) K/mcL Hgb 10.9 L 10.9 L (12.9-16.9) g/dL Hct 32.4 L 33.0 L (37.5-50.1) % Plt Count 379 378 (140-400) K/mcL Neutrophils # 9.5 H (1.6-8.9) K/mcL BMP 01/23/17 05:10 Sodium 131 L Potassium 4.1 Chloride 98 Carbon Dioxide 26 BUN 11 Creatinine 0.77 Glucose 95 Calcium 8.3 L Cardiac Enzymes 01/22/17 01/23/17 Range/Units 22:55 05:10 Troponin I 1.14 H* 1.11 H* (0-0.03) ng/mL Liver Function 01/23/17 Range/Units 05:10 Total Bilirubin 1.2 (0.2-1.2) mg/dL AST 22 (5-34) Units/L ALT 26 (0-55) Units/L Alkaline Phosphatase 76 (38-126) Units/L Albumin 2.3 L (3.5-5.0) g/dL Urine 01/23/17 Range/Units 06:20 Urine Color Yellow (Yellow) Urine Clarity Clear (Clear) Urine pH 8.0 (5.0-8.0) pH Units Ur Specific [place] 1.013 (1.010-1.025) Urine Protein Negative (Neg-Trace) mg/dL Urine Glucose (UA) Normal (Normal) mg/dL - ABG Interpretation ABG results: PT/INR, D-dimer PT 14.8 Seconds (9.4-12.1) H 01/23/17 01:03 - Impressions Impressions Echocardiogram 01/23/17 18:06 Impressions: LVEF 50-55%. Normal LV chamber size and wall thickness. Mild segmental left ventricular systolic dysfunction. Mild left ventricular diastolic dysfunction. Normal right ventricular structure and function. No evidence of PFO with agitated saline contrast. No evidence of pulmonary hypertension. No significant valvular dysfunction. Pleural effusion noted. Aortic root appeared upper limits of normal in size - 3.93 cm at tubular portion. Left Ventricular Wall Motion: Rest Echo Findings The basal inferior lateral wall was hypokinetic. The mid inferior, basal inferior and basal inferior septal thomas were akinetic. All other wall segments showed normal motion. Findings: Study Quality * Technically adequate exam. ECG Findings * Normal sinus rhythm. Left Ventricle * LVEF 50-55%. * Normal LV chamber size and wall thickness. * Mild segmental left ventricular systolic dysfunction. * Mild left ventricular diastolic dysfunction. Right Ventricle * Normal right ventricular structure and function. Left Atrium * Moderately dilated left atrium. Right Atrium * Mildly dilated right atrium. Interatrial Septum * No evidence of PFO with agitated saline contrast. Aortic Valve * Trileaflet aortic valve with normal function. * No aortic regurgitation. * No aortic stenosis. Mitral Valve * Normal mitral valve structure and function. * No mitral stenosis. * Trace mitral regurgitation. Tricuspid Valve * Normal tricuspid valve structure and function. * Trace tricuspid regurgitation. * No evidence of pulmonary hypertension. Pulmonic Valve * Normal pulmonic valve structure and function. * Trace pulmonic regurgitation. Aorta * Aortic root appeared upper limits of normal in size - 3.93 cm at tubular portion. Pericardium * The pericardium appears normal. IVC * Normal IVC dimensions and inspiratory collapse. Pulmonary Artery * Normal visualized portions of the main pulmonary artery. Consult Discharge Plan - Plan Referrals: Dylon Enamorado MD [Primary Care Provider] -
--- NOTE | 2017-01-23 19:38 | Electrocardiograph Report ---
[place] [id number] Test Date: 2017-01-22 Pat Name: Vilma San Department: 104 Room: 2A12 Gender: M [employer]: AM : 1945 Requested By: Rell Victor Order Number: [id number] Reading MD: Cynthia Kirby Measurements Intervals [place] Rate: 70 P: 40 MN: 151 QRS: 43 QRSD: 97 T: 40 QT: 435 QTc: 455 Interpretive Statements SINUS RHYTHM LEFT ATRIAL ENLARGEMENT MODERATE ST DEPRESSION Electronically Signed On 01-23-2017 19:37:12 EST by Cynthia Kirby
--- NOTE | 2017-01-23 19:40 | Electrocardiograph Report ---
[place] [id number] Test Date: 2017-01-23 Pat Name: Vilma San Department: 112 Room: 2A12 Gender: M Insurance Special Agent: ABDIRAHMAN : [id number] Requested By: Lopez Sanchez Order Number: [id number] Reading MD: Cynthia Kirby Measurements Intervals [place] Rate: 76 P: 23 CT: 127 QRS: 45 QRSD: 97 T: 266 QT: 421 QTc: 451 Interpretive Statements SINUS RHYTHM POSSIBLE LEFT ATRIAL ENLARGEMENT ST DEVIATION AND MODERATE T-WAVE ABNORMALITY, CONSIDER ANTEROLATERAL ISCHEMIA ST DEVIATION AND MODERATE T-WAVE ABNORMALITY, CONSIDER INFERIOR ISCHEMIA Electronically Signed On 01-23-2017 19:38:45 EST by Cynthia Kirby
[2017-01-23] MEDS: Levofloxacin 750 MG/150 ML 750 MG/150 ML BAG IVPB SCH (21:52)
[2017-01-24 04:30] LABS: Basophils # 0.1 K/mcL (0.0-0.2); Basophils % 0.6 %; Eosinophils # 0.6 K/mcL (0.0-0.6); Eosinophils % 6.5 %; Hematocrit 31.9 % (37.5-50.1); Hemoglobin 10.4 g/dL (12.9-16.9); Immature Granulocytes % 0.5 % (0-4); Lymphocytes # 1.2 K/mcL (0.6-4.6); Lymphocytes % 12.4 %; Mean Corpuscular HGB Conc 32.6 g/dL (31.6-35.5); Mean Corpuscular Hemoglobin 29.5 pg (28.0-33.3); Mean Corpuscular Volume 90.6 fL (83.0-100.0); Monocytes # 0.8 K/mcL (0.0-1.3); Monocytes % 8.5 %; Neutrophils # 6.9 K/mcL (1.6-8.9); Platelet Count 383 K/mcL (140-400); Red Blood Count 3.52 M/mcL (4.19-5.50); Red Cell Distribution Width 14.3 % (11.5-14.5); Segmented Neutrophils % 71.5 %
[2017-01-24 04:48] LABS: BUN/Creatinine Ratio 20 (6-26); Blood Urea Nitrogen 16 mg/dL (8-26); Calcium 8.5 mg/dL (8.6-10.8); Carbon Dioxide 25 mEq/L (19-29); Chloride 99 mEq/L (98-109); Glucose 100 mg/dL (70-99); Magnesium 1.7 mg/dL (1.6-2.6); Osmolality,Calculated 271 (280-300); Potassium 4.1 mEq/L (3.5-4.5); Sodium 130 mEq/L (136-145); eGFR For African Americans > 60 (> 60); eGFR For Non-African Americans > 60 (> 60)
[2017-01-24] MEDS ORDERED: *HR* Heparin 5,000 UNIT/ML VIAL IVP ONE (07:45)
[2017-01-24] MEDS ORDERED: *HR* Heparin 5,000 UNIT/ML VIAL IVP PRN ×2 (07:45)
[2017-01-24] MEDS ORDERED: Heparin 25,000 UNIT/500 ML D5W 25,000 UNIT/500 ML MLS IVC SCH (07:45)
--- NOTE | 2017-01-24 07:48 | Event Note ---
Date of Encounter: 01/24/17 Time of Encounter: 00:45 (late entry for 01/23/17 at 6pm) - Cardiology Event Note Patient reviewed with Dr. Fiore, Hep. gtt not stopped and continued. Will evaluate this am stopping Hep gtt.
--- NOTE | 2017-01-24 09:20 | Cardiothoracic Progress Note ---
Date of Encounter: 01/24/17 Time of Encounter: : - Assessment and plan (1) Diastolic CHF, acute on chronic Current Visit: Yes Status: Acute The patient remained hemodynamically stable overnight. He has no complaints of substernal chest pain. A transthoracic echocardiogram revealed an LVEF 50-55% with normal LV chamber size and wall thickness. Mild left ventricular diastolic dysfunction was noted. The patient had mid inferior, basal inferior, and basal inferior septal wall akinesis which is unchanged from his preoperative echocardiogram. Diuresis should continue. The assessment and plan as outlined above was discussed with the patient and/or family members who expressed understanding and agreement. All questions were answered. - Subjective Interval history: The patient remained hemodynamically stable overnight. He had no complaints of substernal chest pain. He is breathing comfortably. Vital Signs, Last 4 Hours Temp Pulse Resp BP Pulse Ox 01/24/17 06:50 97.9 F 78 17 87/56 96 Clinical Data, last 8 Hours Output, Urine Amount 250 Output, Urine Amount 100 Output, Urine Amount 275 Output, Urine Amount 250 Weight 01/22/17 01/23/17 01/24/17 23:59 23:59 23:59 Weight 73.028 kg 69.5 kg - Physical Examination General: Conversant, No Apparent Distress Neck: No JVD, Normal carotid pulses Cardiac: Reg Rate and Rhythm, Normal S1 and S2, No Murmur Incision: No signs of infection, Dry/intact dressing Sternum: Stable Lungs: Normal Breath Sounds, No Wheeze, Rales, Rhonchi Neuro: Alert and responsive, No focal deficits noted Vascular: Normal capillary refill Extremities: No Clubbing, No Cyanosis, Normal Pulses, Other (2+ pitting edema bilaterally from the knees to the toes) - Labs 01/24/17 04:14 01/24/17 04:14 Lab Results, Last 24 hours 01/23/17 01/23/17 01/24/17 09:42 16:21 04:14 WBC 9.6 Hgb 10.4 L Hct 31.9 L Plt Count 383 APTT 65.9 H D 65.6 H Sodium Potassium Chloride Carbon Dioxide BUN Creatinine Glucose Calcium Magnesium 01/24/17 04:14 WBC Hgb Hct Plt Count APTT Sodium 130 L Potassium 4.1 Chloride 99 Carbon Dioxide 25 BUN 16 Creatinine 0.82 Glucose 100 H Calcium 8.5 L Magnesium 1.7 Consult Discharge Plan - Plan Referrals: Dylon Enamorado MD [Primary Care Provider] -
[2017-01-24] MEDS: Aspirin Enteric Coated 81 MG Tablet PO SCH (09:23)
[2017-01-24] MEDS: *HR* Morphine 2 MG/ML SYRINGE IVP PRN (09:23)
--- NOTE | 2017-01-24 09:33 | Cardiology Progress Note ---
Date of Encounter: 01/24/17 Time of Encounter: 09:32 Assessment and Plan (1) Diastolic CHF, acute on chronic Current Visit: Yes Status: Acute Diastolic CHF s/p CABG Echo demonstrates LVEF 50-55% with mild LV systolic and diastolic dysfunction Patient reports decreased shortness of breath, mildly improved leg edema Net I/O -875 in 24hr, BNP trending down, Lungs CTAB on exam Continue medical management with ASA, Statin, Plavix, BB, and RADHA as tolerated. Consider transition to PO Lasix Cardiac rehab is not indicated at this time (2) Bilateral pleural effusion Current Visit: Yes Status: Chronic Noted during last stay Patient had b/l thoracentesis on previous admission CT following (3) Elevated troponin Current Visit: Yes Status: Acute Elevated troponins, trending down - peaked at 1.14 Trop 0.92 -> 1.14 -> 1.11 Unlikely NSTEMI, probable demand ischemia DC Heparin (4) S/P CABG (coronary artery bypass graft) Current Visit: Yes Status: Chronic Recent acute MD with peak troponin in the 20s. Underwent CABG 4 with SVG to diagonal 1, sequential SVG to ramus and to OM 1 and SVG to PDA. Discussion w patient/family: The assessment and plan as outlined above was discussed with the patient and/or family members who expressed understanding and agreement. All questions were answered. Thank you for involving us in the care of your patient. Please call with any questions. Subjective Principal diagnosis: Diastolic CHF Interval history: Patient improved overnight, not acute problems. Heparin was stopped overnight and continued this morning pending review by cardiology service. Objective Vital Signs, Last 4 Hours Temp Pulse Resp BP Pulse Ox 01/24/17 06:50 97.9 F 78 17 87/56 96 General: Conversant, No Apparent Distress HEENT: Atraumatic, Normocephaly, Mucus Membranes Moist Neck: No JVD, Normal carotid pulses Cardiac: Reg Rate and Rhythm, Normal S1 and S2, No Murmur Lungs: Normal Breath Sounds, No Wheeze, Rales, Rhonchi Neuro: Alert and responsive, No focal deficits noted Abdomen: Soft, Non-Tender Skin: No rashes noted on visualized skin Musculoskeletal: No Chest Wall Tenderness Extremities: No Clubbing, No Cyanosis, Normal Pulses, Other (+1-2 pitting edema with tenderness to palpation in lower extremities b/l) Results 01/24/17 09:24 01/24/17 04:14 Lab Results 01/23/17 01/23/17 01/24/17 09:42 16:21 04:14 WBC 9.6 Hgb 10.4 L Hct 31.9 L Plt Count 383 APTT 65.9 H D 65.6 H Sodium Potassium Chloride Carbon Dioxide BUN Creatinine Glucose Calcium Magnesium 01/24/17 04:14 WBC Hgb Hct Plt Count APTT Sodium 130 L Potassium 4.1 Chloride 99 Carbon Dioxide 25 BUN 16 Creatinine 0.82 Glucose 100 H Calcium 8.5 L Magnesium 1.7 - Imaging and Cardiology Echo: report reviewed - EKG Interpretation EKG results cardiology: personally reviewed Consult Discharge Plan - Plan Referrals: Dylon Enamorado MD [Primary Care Provider] - (Patient will follow up with ECF PCP until dischrged from there)
[2017-01-24 09:36] LABS: Hematocrit 33.6 % (37.5-50.1); Hemoglobin 10.9 g/dL (12.9-16.9); Mean Corpuscular HGB Conc 32.4 g/dL (31.6-35.5); Mean Corpuscular Hemoglobin 29.5 pg (28.0-33.3); Mean Corpuscular Volume 90.8 fL (83.0-100.0); Mean Platelet Volume 9.3 fL (9.4-12.4); Platelet Count 396 K/mcL (140-400); Red Cell Distribution Width 14.3 % (11.5-14.5)
[2017-01-24 09:42] LABS: INR 1.4; Prothrombin Time 15.5 Seconds (9.4-12.1)
[2017-01-24 09:45] LABS: Activated Partial Thrombo Time 30.8 Seconds (26.0-36.0)
[2017-01-24] MEDS: Furosemide 40 MG/4 ML VIAL IVP SCH ×2 (11:43→16:57)
--- NOTE | 2017-01-24 14:07 | Internal Med Progress Note ---
Date of Encounter: 01/24/17 Time of Encounter: 12:30 - Assessment and plan (1) Diastolic CHF, acute on chronic Current Visit: Yes Status: Acute Assessment and plan: Reviewed repeat 2 D Echo showed normal LVEF 50-55%, Mild diastolic dysfunction Cont IV diuresis with Lasix 40 BID negative 3.2 lit fluid balance so far cont Coreg, ASA, Plavix, Statin If BP allows will start him on low dose ACEI Risk assessment: Since he did have 3+ pitting edema and significant volume overload, he still need aggressive diuresis for another day at least..will switch him to PO Lasix in AM and possible d/c ECF in AM (2) NSTEMI (non-ST elevated myocardial infarction) Current Visit: Yes Status: Acute Assessment and plan: Troponin peaked at 1.14 and trending down Echo did not show any wall motion abnormalities Mostly demand ischemia no anti coag needed... Card is on board (3) Pneumonia Current Visit: Yes Status: Acute Assessment and plan: mostly bacterial improving cont empirical abx Levaquin...will switch to PO Qualifiers: Qualified Code(s): J18.9 - Pneumonia, unspecified organism (4) Hyperlipidemia Current Visit: No Status: Acute Assessment and plan: on statin Qualifiers: Hyperlipidemia type: mixed hyperlipidemia Qualified Code(s): E78.2 - Mixed hyperlipidemia (5) S/P CABG (coronary artery bypass graft) Current Visit: Yes Status: Chronic (6) Bilateral pleural effusion Current Visit: Yes Status: Chronic Assessment and plan: due to CHF cont Diuresis - Subjective Interval history: Mr. San is a 71 year old male with known pMH of HTN, HLD, CAD recent s/p CABG x 4 01/12/17, mild diastolic CHF , who also happened to have large b/l pleural effusion for which he had b/l thorcocentesis done on 01/16/17 and d/c d SNF for short term PT / OT. Now he is brought back to ER c/o progressively worsening SOB , MCDONNELL and 3+ pitting in edema in both legs. Pt was admitted in the hospital and started him on IV diuresis. His symptoms improved now. Still has 2+ pitting in edema in both legs. No CP. No events over night - Constitutional Vitals: Temp Pulse Resp BP Pulse Ox 98.0 F 94 17 89/54 97 01/24/17 11:20 01/24/17 11:20 01/24/17 11:20 01/24/17 11:20 01/24/17 11:20 General appearance: Present: A&O X 3, no acute distress, answers questions appropriately - Head Head exam: Present: atraumatic, normal inspection - Neck Neck exam general surgery: Present: supple - Respiratory Respiratory exam: Present: decreased breath sounds. Absent: rales, respiratory distress, rhonchi, wheezes - Cardiovascular Cardiovascular exam: Present: RRR, +S1, +S2. Absent: JVD, tachycardia - GI/Abdominal GI/Abdominal exam: Present: soft. Absent: rebound, rigid, tenderness - Extremities Exam Extremities exam: Present: pedal edema (Improving edema in both legs). Absent: calf tenderness, tenderness - Back Exam Back exam: Absent: CVA tenderness (L), CVA tenderness (R) - Neurological Exam Neurological exam: Present: alert, oriented X3 - Psychiatric Psychiatric exam: Present: normal affect, normal mood Internal Medicine: Result - Labs CBC & Chem 7: 01/24/17 09:24 01/24/17 04:14 Labs: Short CBC 01/24/17 01/24/17 Range/Units 04:14 09:24 WBC 9.6 8.3 (4.3-11.1) K/mcL Hgb 10.4 L 10.9 L (12.9-16.9) g/dL Hct 31.9 L 33.6 L (37.5-50.1) % Plt Count 383 396 (140-400) K/mcL Neutrophils # 6.9 (1.6-8.9) K/mcL BMP 01/24/17 04:14 Sodium 130 L Potassium 4.1 Chloride 99 Carbon Dioxide 25 BUN 16 Creatinine 0.82 Glucose 100 H Calcium 8.5 L - ABG Interpretation ABG results: PT/INR, D-dimer PT 15.5 Seconds (9.4-12.1) H 01/24/17 09:24 Consult Discharge Plan - Plan Referrals: Dylon Enamorado MD [Primary Care Provider] - (Patient will follow up with ECF PCP until dischrged from there)
[2017-01-24] MEDS: *HR* HYDROcodone/Acet 5/325 mg TABLET PO PRN ×2 (14:55→21:19)
[2017-01-24] MEDS: levoFLOXacin 500 MG TABLET PO SCH (21:20)
[2017-01-25] MEDS: *HR* HYDROcodone/Acet 5/325 mg TABLET PO PRN ×2 (01:13→19:47)
[2017-01-25] MEDS ORDERED: *HR* Heparin 5,000 UNIT/ML VIAL IVP ONE (03:22)
[2017-01-25] MEDS ORDERED: *HR* Heparin 5,000 UNIT/ML VIAL IVP PRN (03:22)
--- NOTE | 2017-01-25 03:29 | Event Note ---
<Geneva Khan - Last Filed: 01/25/17 03:14> Date of Encounter: 01/25/17 Time of Encounter: 03:14 I was paged by the patient's nurse that he was having increased left lower leg pain despite receiving pain medication. He was also complaining of chest pain that is worse with respirations and shortness of breathe. Myself and Dr. Richards evaluated the patient and found that he had significant tenderness in his left popliteal and upper medial thigh region. He could not bend his leg and it was very warm. The patient stated that this leg pain was different than before and constant. His heparin had been stopped yesterday and with his recent CABG x4 stent on 01/12/2017 and immobility there was concern for DVT. Heart sounds did not reveal rub and were RRR. Lungs were clear to auscultation. But with pain with breathing there is concern for possible PE as well. The patient is a retired physician and it was explained to him the concerns and to start a heparin drip, LE ultrasound, and possible Chest CTA. He stated a clear understanding and agreed with the treatment and plan. Dr. Richards and myself are going to inform the AM medicine team of the new circumstances so that they can follow up with these new events. The patient's history, course of treatment , labs, and medications were all reviewed. His nurse was present for the entire patient encounter and the treatment and plan was explained to her. <Servando Richards - Last Filed: 01/25/17 05:44> Date of Encounter: 01/25/17 I agree with the above documentation. I saw and evaluated patient myself after discussing with Dr. Khan. I agree and I, too, have a high index of suspicion for PE and DVT given the patient complaints and exam findings. We ordered heparin gtt per protocol, LE Dopplers, and I will defer to primary day team hospitalist to pursue CTA vs V/Q scan later today if above are negative.
[2017-01-25 04:30] LABS: BUN/Creatinine Ratio 24 (6-26); Blood Urea Nitrogen 19 mg/dL (8-26); Calcium 8.7 mg/dL (8.6-10.8); Carbon Dioxide 27 mEq/L (19-29); Chloride 99 mEq/L (98-109); Glucose 97 mg/dL (70-99); Magnesium 1.7 mg/dL (1.6-2.6); Osmolality,Calculated 272 (280-300); Sodium 130 mEq/L (136-145); eGFR For African Americans > 60 (> 60); eGFR For Non-African Americans > 60 (> 60)
[2017-01-25] MEDS: Heparin 25,000 UNIT/500 ML D5W 25,000 UNIT/500 ML MLS IVC SCH (04:34)
[2017-01-25] MEDS: Aspirin Enteric Coated 81 MG Tablet PO SCH (07:47)
[2017-01-25] MEDS: Furosemide 40 MG/4 ML VIAL IVP SCH (07:48)
--- NOTE | 2017-01-25 08:07 | Cardiology Progress Note ---
<Umang Singh - Last Filed: 01/25/17 16:24> Date of Encounter: 01/25/17 Time of Encounter: 09:00 Assessment and Plan (1) Diastolic CHF, acute on chronic Current Visit: Yes Status: Acute Diastolic CHF s/p CABG Echo demonstrates LVEF 50-55% with mild LV systolic and diastolic dysfunction Net I/O -4734ml, BNP trending down, Lungs CTAB on exam Continue medical management with ASA, Statin, Plavix, BB, and RADHA as tolerated. Consider transition to PO Lasix prn Cardiac rehab is not indicated at this time (2) Bilateral pleural effusion Current Visit: Yes Status: Chronic Noted during last stay Patient had b/l thoracentesis on previous admission CT following (3) Elevated troponin Current Visit: Yes Status: Acute Elevated troponins, trending down - peaked at 1.14 Trop 0.92 -> 1.14 -> 1.11 Unlikely NSTEMI, probable demand ischemia Heparin not necessary from a cardiology standpoint, however may be indicated for DVT/PE per primary team (4) S/P CABG (coronary artery bypass graft) Current Visit: Yes Status: Chronic Recent acute MO with peak troponin in the 20s. Underwent CABG 4 with SVG to diagonal 1, sequential SVG to ramus and to OM 1 and SVG to PDA. Discussion w patient/family: The assessment and plan as outlined above was discussed with the patient and/or family members who expressed understanding and agreement. All questions were answered. Thank you for involving us in the care of your patient. Please call with any questions. Subjective Principal diagnosis: Diastolic CHF Interval history: Had acute leg pain, chest pain, SOB overnight. PE workup initiated, Heparin continued. Objective Vital Signs, Last 4 Hours Temp Pulse Resp BP Pulse Ox 01/25/17 07:57 94/60 01/25/17 07:03 97.9 F 76 17 87/54 97 01/25/17 04:17 98.3 F 78 18 92/60 97 General: Conversant, No Apparent Distress HEENT: Atraumatic, Normocephaly, Mucus Membranes Moist Neck: No JVD, Normal carotid pulses Cardiac: Reg Rate and Rhythm, Normal S1 and S2, No Murmur Lungs: Normal Breath Sounds, No Wheeze, Rales, Rhonchi Neuro: Alert and responsive, No focal deficits noted Abdomen: Soft, Non-Tender Skin: No rashes noted on visualized skin Musculoskeletal: No Chest Wall Tenderness Extremities: No Clubbing, No Cyanosis, Normal Pulses, Other (Right LE 1+ nonpitting edema with diffuse tenderness to palpation. Pain out of proportion to exam.) Results 01/24/17 09:24 01/25/17 03:50 Lab Results 01/24/17 01/24/17 01/25/17 09:24 09:24 03:50 WBC 8.3 Hgb 10.9 L Hct 33.6 L Plt Count 396 INR 1.4 APTT 30.8 D Sodium 130 L Potassium 4.0 Chloride 99 Carbon Dioxide 27 BUN 19 Creatinine 0.78 Glucose 97 Calcium 8.7 Magnesium 1.7 01/25/17 03:50 WBC Hgb Hct Plt Count INR APTT 28.8 Sodium Potassium Chloride Carbon Dioxide BUN Creatinine Glucose Calcium Magnesium Consult Discharge Plan - Plan Referrals: Dylon Enamorado MD [Primary Care Provider] - (Patient will follow up with ECF PCP until dischrged from there) <Eduard Kirby - Last Filed: 01/25/17 17:13> Date of Encounter: 01/25/17 Assessment and Plan Discussion w patient/family: The assessment and plan as outlined above was discussed with the patient and/or family members who expressed understanding and agreement. All questions were answered. Thank you for involving us in the care of your patient. Please call with any questions. Results 01/24/17 09:24 01/25/17 03:50 Lab Results 01/25/17 01/25/17 01/25/17 03:50 03:50 11:09 APTT 28.8 155.7 H* D Sodium 130 L Potassium 4.0 Chloride 99 Carbon Dioxide 27 BUN 19 Creatinine 0.78 Glucose 97 Calcium 8.7 Magnesium 1.7
--- NOTE | 2017-01-25 09:12 | Cardiothoracic Progress Note ---
Date of Encounter: 01/25/17 Time of Encounter: 09:05 - Assessment and plan (1) Diastolic CHF, acute on chronic Current Visit: Yes Status: Acute The patient remained hemodynamically stable overnight; however, he did complain of shortness of breath, left precordial chest pain and left leg pain last night. He is on heparin drip and is scheduled for a lower extremity venous duplex later today. The assessment and plan as outlined above was discussed with the patient and/or family members who expressed understanding and agreement. All questions were answered. - Subjective Interval history: The patient remained hemodynamically stable overnight; however, he did complain of shortness of breath, left precordial chest pain and left leg pain last night. Vital Signs, Last 4 Hours Temp Pulse Resp BP Pulse Ox 01/25/17 07:57 94/60 01/25/17 07:03 97.9 F 76 17 87/54 97 Oxgyen Flow Rate Oxygen Flow Rate (LPM) 2 Clinical Data, last 8 Hours Output, Urine Amount 0 Output, Urine Amount 400 Output, Urine Amount 120 Weight 01/23/17 01/24/17 01/25/17 23:59 23:59 23:59 Weight 73.028 kg 69.5 kg 69.9 kg - Physical Examination General: Conversant, No Apparent Distress Neck: No JVD, Normal carotid pulses Cardiac: Reg Rate and Rhythm, Normal S1 and S2, No Murmur Incision: No signs of infection Lungs: Normal Breath Sounds, No Wheeze, Rales, Rhonchi Neuro: Alert and responsive, No focal deficits noted Vascular: Normal capillary refill Extremities: No Clubbing, No Cyanosis, Other (2+ bilateral lower extremity pitting edema. No erythema noted along chest saphenous vein harvest sites.) - Labs 01/24/17 09:24 01/25/17 03:50 Lab Results, Last 24 hours 01/24/17 01/24/17 01/25/17 09:24 09:24 03:50 WBC 8.3 Hgb 10.9 L Hct 33.6 L Plt Count 396 INR 1.4 APTT 30.8 D Sodium 130 L Potassium 4.0 Chloride 99 Carbon Dioxide 27 BUN 19 Creatinine 0.78 Glucose 97 Calcium 8.7 Magnesium 1.7 01/25/17 03:50 WBC Hgb Hct Plt Count INR APTT 28.8 Sodium Potassium Chloride Carbon Dioxide BUN Creatinine Glucose Calcium Magnesium Consult Discharge Plan - Plan Referrals: Dylon Enamorado MD [Primary Care Provider] - (Patient will follow up with ECF PCP until dischrged from there)
[2017-01-25] MEDS: *HR* Morphine 2 MG/ML SYRINGE IVP PRN ×2 (10:50→17:47)
[2017-01-25 11:42] LABS: Activated Partial Thrombo Time 155.7 Seconds (26.0-36.0)
[2017-01-25 11:59] LABS: Heparin anti-factor XA UFH 0.63 IU/mL (0.30-0.70)
--- NOTE | 2017-01-25 14:53 | Internal Med Progress Note ---
Date of Encounter: 01/25/17 Time of Encounter: 14:50 - Assessment and plan (1) Diastolic CHF, acute on chronic Current Visit: Yes Status: Acute Assessment and plan: Reviewed repeat 2 D Echo showed normal LVEF 50-55%, Mild diastolic dysfunction Held diuresis today since he is scheduled for CTA of chest to r/o PE negative 4.5 lit fluid balance so far cont Coreg, ASA, Plavix, Statin If BP allows will start him on low dose ACEI Risk assessment: Still high risk for resp failure and possible PE with underline DVT.. Cont heparin gtt. Cont current higher level of care. will obtain CTA of chest (2) NSTEMI (non-ST elevated myocardial infarction) Current Visit: Yes Status: Acute Assessment and plan: Troponin peaked at 1.14 and trending down Echo did not show any wall motion abnormalities Mostly demand ischemia Card is on board (3) Chest pain Current Visit: No Status: Ruled-out Assessment and plan: seems more like pleurisy pain will get CTA of chest to r/o PE cont heparin gtt for now will hold lasix today since he gets contrast today will use Lasix PRN only if he becomes more SOB Qualifiers: Chest pain type: unspecified Qualified Code(s): R07.9 - Chest pain, unspecified (4) Pneumonia Current Visit: Yes Status: Acute Assessment and plan: mostly bacterial improving cont empirical abx Levaquin Qualifiers: Qualified Code(s): J18.9 - Pneumonia, unspecified organism (5) Hyperlipidemia Current Visit: No Status: Acute Assessment and plan: on statin Qualifiers: Hyperlipidemia type: mixed hyperlipidemia Qualified Code(s): E78.2 - Mixed hyperlipidemia (6) S/P CABG (coronary artery bypass graft) Current Visit: Yes Status: Chronic (7) Bilateral pleural effusion Current Visit: Yes Status: Chronic Assessment and plan: due to CHF cont Diuresis - Subjective Interval history: Mr. San is a 71 year old male with known pMH of HTN, HLD, CAD recent s/p CABG x 4 01/12/17, mild diastolic CHF , who also happened to have large b/l pleural effusion for which he had b/l thorcocentesis done on 01/16/17 and d/c d SNF for short term PT / OT. Now he is brought back to ER c/o progressively worsening SOB , MCDONNELL and 3+ pitting in edema in both legs. Pt was admitted in the hospital and started him on IV diuresis. His symptoms improved now. Still has 1-2+ pitting in edema in both legs. Last night he did c/o severe Left leg pain and cramps..Started him on Heparin gtt in suspect of possible DVT. He also c/o intermittent left sub sternal CP with deep breaths. Denied any cough - Constitutional Vitals: Temp Pulse Resp BP Pulse Ox 98.0 F 85 17 88/54 97 01/25/17 11:16 01/25/17 11:16 01/25/17 11:16 01/25/17 11:16 01/25/17 11:16 General appearance: Present: A&O X 3, no acute distress, answers questions appropriately - Head Head exam: Present: atraumatic, normal inspection - Respiratory Respiratory exam: Present: decreased breath sounds, wheezes (mild). Absent: rales, respiratory distress, rhonchi - Cardiovascular Cardiovascular exam: Present: RRR, +S1, +S2. Absent: systolic murmur - GI/Abdominal GI/Abdominal exam: Present: normal bowel sounds, soft. Absent: rebound, rigid, tenderness - Extremities Exam Extremities exam: Present: calf tenderness (Left leg), pedal edema (1-2+ in both legs), tenderness (Left leg) - Neurological Exam Neurological exam: Present: alert, oriented X3 - Psychiatric Psychiatric exam: Present: anxious Internal Medicine: Result - Labs CBC & Chem 7: 01/24/17 09:24 01/25/17 03:50 Labs: BMP 01/25/17 03:50 Sodium 130 L Potassium 4.0 Chloride 99 Carbon Dioxide 27 BUN 19 Creatinine 0.78 Glucose 97 Calcium 8.7 - ABG Interpretation ABG results: PT/INR, D-dimer PT 15.5 Seconds (9.4-12.1) H 01/24/17 09:24 Consult Discharge Plan - Plan Referrals: Dylon Enamorado MD [Primary Care Provider] - (Patient will follow up with ECF PCP until dischrged from there)
[2017-01-25] MEDS: levoFLOXacin 500 MG TABLET PO SCH (19:48)
[2017-01-25] MEDS ORDERED: levoFLOXacin 750 MG TABLET PO SCH (20:00)
[2017-01-26] MEDS: *HR* HYDROcodone/Acet 5/325 mg TABLET PO PRN ×3 (04:15→13:50)
[2017-01-26 04:28] LABS: BUN/Creatinine Ratio 16 (6-26); Blood Urea Nitrogen 12 mg/dL (8-26); Calcium 8.3 mg/dL (8.6-10.8); Carbon Dioxide 25 mEq/L (19-29); Chloride 101 mEq/L (98-109); Glucose 97 mg/dL (70-99); Magnesium 1.9 mg/dL (1.6-2.6); Osmolality,Calculated 276 (280-300); Potassium 4.1 mEq/L (3.5-4.5); Sodium 133 mEq/L (136-145); eGFR For African Americans > 60 (> 60); eGFR For Non-African Americans > 60 (> 60)
[2017-01-26 04:31] LABS: Basophils # 0.1 K/mcL (0.0-0.2); Basophils % 1.3 %; Eosinophils # 0.5 K/mcL (0.0-0.6); Eosinophils % 7.7 %; Hematocrit 31.2 % (37.5-50.1); Hemoglobin 10.1 g/dL (12.9-16.9); Immature Granulocytes % 0.3 % (0-4); Lymphocytes # 1.1 K/mcL (0.6-4.6); Lymphocytes % 17.7 %; Mean Corpuscular HGB Conc 32.4 g/dL (31.6-35.5); Mean Corpuscular Hemoglobin 29.6 pg (28.0-33.3); Mean Corpuscular Volume 91.5 fL (83.0-100.0); Mean Platelet Volume 9.8 fL (9.4-12.4); Monocytes # 0.6 K/mcL (0.0-1.3); Monocytes % 9.8 %; Platelet Count 393 K/mcL (140-400); Red Blood Count 3.41 M/mcL (4.19-5.50); Red Cell Distribution Width 14.2 % (11.5-14.5); Segmented Neutrophils % 63.2 %
[2017-01-26] MEDS: *HR* Heparin 5,000 UNIT/ML VIAL IVP PRN ×2 (05:20→18:57)
[2017-01-26] MEDS: Heparin 25,000 UNIT/500 ML D5W 25,000 UNIT/500 ML MLS IVC SCH ×2 (08:46→18:46)
[2017-01-26] MEDS: Aspirin Enteric Coated 81 MG Tablet PO SCH (08:46)
--- NOTE | 2017-01-26 10:14 | Cardiothoracic Progress Note ---
Date of Encounter: 01/26/17 Time of Encounter: 10:11 - Assessment and plan (1) Diastolic CHF, acute on chronic Current Visit: Yes Status: Acute The patient remained hemodynamically stable overnigh. He had no further complaints of shortness of breath, left precordial chest pain, or left leg pain last night. His venous duplex revealed a left peroneal vein DVT in the chest CTA revealed bilateral pulmonary emboli. He is on heparin drip and will require long-term anticoagulation. The assessment and plan as outlined above was discussed with the patient and/or family members who expressed understanding and agreement. All questions were answered. - Subjective Interval history: The patient remained hemodynamically stable overnight. He had no further substernal chest pain or shortness of breath. Vital Signs, Last 4 Hours Temp Pulse Resp BP Pulse Ox 01/26/17 07:07 97.5 F L 80 16 93/63 97 Oxgyen Flow Rate Oxygen Flow Rate (LPM) 2 Clinical Data, last 8 Hours Output, Urine Amount 0 Output, Urine Amount 250 Output, Urine Amount 200 Weight 01/24/17 01/25/17 01/26/17 23:59 23:59 23:59 Weight 69.5 kg 69.9 kg 73.482 kg - Physical Examination General: Conversant, No Apparent Distress Neck: No JVD, Normal carotid pulses Cardiac: Reg Rate and Rhythm, Normal S1 and S2, No Murmur Incision: No signs of infection, Dry/intact dressing Sternum: Stable Lungs: Normal Breath Sounds, No Wheeze, Rales, Rhonchi Neuro: Alert and responsive, No focal deficits noted Vascular: Normal capillary refill Extremities: No Clubbing, No Cyanosis, Other (2+ pitting edema in both lower extremities) - Labs 01/26/17 03:50 01/26/17 03:50 Lab Results, Last 24 hours 01/25/17 01/25/17 01/26/17 11:09 20:00 03:50 WBC 6.3 Hgb 10.1 L Hct 31.2 L Plt Count 393 APTT 155.7 H* D 51.7 H D Sodium Potassium Chloride Carbon Dioxide BUN Creatinine Glucose Calcium Magnesium 01/26/17 01/26/17 03:50 03:50 WBC Hgb Hct Plt Count APTT 46.9 H Sodium 133 L Potassium 4.1 Chloride 101 Carbon Dioxide 25 BUN 12 Creatinine 0.75 Glucose 97 Calcium 8.3 L Magnesium 1.9 Consult Discharge Plan - Plan Referrals: Dylon Enamorado MD [Primary Care Provider] - (Patient will follow up with ECF PCP until dischrged from there)
[2017-01-26] MEDS: Furosemide 40 MG TABLET PO SCH ×2 (11:27→16:38)
--- NOTE | 2017-01-26 14:39 | Internal Med Progress Note ---
Date of Encounter: 01/26/17 Time of Encounter: 14:32 - Assessment and plan (1) Pulmonary embolism Current Visit: Yes Status: Acute Assessment and plan: Reviewed CTA of Chest results showed b/l lower lobe PE discussed with pt about these results last night it self cont heparin gtt for another 24hrs if he remains CP free for 24hrs, will switch to Eliquis in AM Qualifiers: Pulmonary embolism type: other Chronicity: acute Acute cor pulmonale presence: without acute cor pulmonale Qualified Code(s): I26.99 - Other pulmonary embolism without acute cor pulmonale (2) Left leg DVT Current Visit: Yes Status: Acute Assessment and plan: on heparin gtt Qualifiers: Affected thrombotic vein of extremity: other lower extremity vein Chronicity: acute Qualified Code(s): I82.492 - Acute embolism and thrombosis of other specified deep vein of left lower extremity (3) Diastolic CHF, acute on chronic Current Visit: Yes Status: Acute Assessment and plan: Reviewed repeat 2 D Echo showed normal LVEF 50-55%, Mild diastolic dysfunction switched to PO lasix negative 5 lit fluid balance so far cont Coreg, ASA, Plavix, Statin If BP allows will start him on low dose ACEI Risk assessment: Still high risk for resp failure with b/l PE and DVT, will cont heparin gtt for 48hrs... Cont current higher level of care. (4) NSTEMI (non-ST elevated myocardial infarction) Current Visit: Yes Status: Acute Assessment and plan: Troponin peaked at 1.14 and trending down Echo did not show any wall motion abnormalities Mostly demand ischemia Card is on board (5) Chest pain Current Visit: No Status: Ruled-out Assessment and plan: seems more like pleurisy pain due to PE cont heparin gtt for now Qualifiers: Chest pain type: unspecified Qualified Code(s): R07.9 - Chest pain, unspecified (6) Pneumonia Current Visit: Yes Status: Acute Assessment and plan: mostly bacterial improving cont empirical abx Levaquin Qualifiers: Qualified Code(s): J18.9 - Pneumonia, unspecified organism (7) Hyperlipidemia Current Visit: No Status: Acute Assessment and plan: on statin Qualifiers: Hyperlipidemia type: mixed hyperlipidemia Qualified Code(s): E78.2 - Mixed hyperlipidemia (8) S/P CABG (coronary artery bypass graft) Current Visit: Yes Status: Chronic (9) Bilateral pleural effusion Current Visit: Yes Status: Chronic Assessment and plan: due to CHF cont Diuresis - Subjective Interval history: Mr. San is a 71 year old male with known pMH of HTN, HLD, CAD recent s/p CABG x 4 01/12/17, mild diastolic CHF , who also happened to have large b/l pleural effusion for which he had b/l thorcocentesis done on 01/16/17 and d/c d SNF for short term PT / OT. Now he is brought back to ER c/o progressively worsening SOB , MCDONNELL and 3+ pitting in edema in both legs. Pt was admitted in the hospital and started him on IV diuresis. His symptoms improved now. Still has 1-2+ pitting in edema in both legs. Still has some cramping pain in Left leg. CP / SOB are better today. No events over night - Constitutional Vitals: Temp Pulse Resp BP Pulse Ox 97.8 F 85 16 97/68 97 01/26/17 10:58 01/26/17 10:58 01/26/17 10:58 01/26/17 10:58 01/26/17 10:58 General appearance: Present: A&O X 3, no acute distress, answers questions appropriately - Head Head exam: Present: atraumatic, normal inspection - Respiratory Respiratory exam: Present: decreased breath sounds, wheezes (mild). Absent: rales, respiratory distress, rhonchi - Cardiovascular Cardiovascular exam: Present: RRR, +S1, +S2. Absent: JVD, systolic murmur - GI/Abdominal GI/Abdominal exam: Present: normal bowel sounds, soft. Absent: rebound, rigid, tenderness - Extremities Exam Extremities exam: Present: calf tenderness (mild tenderness Left leg), pedal edema (1-2+). Absent: tenderness - Neurological Exam Neurological exam: Present: alert, oriented X3 - Psychiatric Psychiatric exam: Present: normal affect, normal mood Internal Medicine: Result - Labs CBC & Chem 7: 01/26/17 03:50 01/26/17 03:50 Labs: Short CBC 01/26/17 Range/Units 03:50 WBC 6.3 (4.3-11.1) K/mcL Hgb 10.1 L (12.9-16.9) g/dL Hct 31.2 L (37.5-50.1) % Plt Count 393 (140-400) K/mcL Neutrophils # 4.0 (1.6-8.9) K/mcL BMP 01/26/17 03:50 Sodium 133 L Potassium 4.1 Chloride 101 Carbon Dioxide 25 BUN 12 Creatinine 0.75 Glucose 97 Calcium 8.3 L - ABG Interpretation ABG results: PT/INR, D-dimer PT 15.5 Seconds (9.4-12.1) H 01/24/17 09:24 - Impressions Impressions Chest CTA 01/25/17 15:30 IMPRESSION: Bilateral pulmonary emboli involving lobar right middle and lower lobe arteries as well as probably the left lower lobe subsegmental arteries. The RV/LV ratio is approximately 1.1. Moderate bilateral pleural effusions, slightly increased on the left and decreased on the right with bilateral dependent airspace disease, probably passive atelectasis although pneumonia cannot be excluded, particularly in the left lower lobe. Findings were called to the ordering service at 4:37 p.m. on 01/25/2017. D/ / Carmen Beltran Cha, MD / Carmen Beltran Cha, MD Interpreting Provider: Carmen Beltran Cha, MD Consult Discharge Plan - Plan Referrals: Dylon Enamorado MD [Primary Care Provider] - (Patient will follow up with [facility] PCP until dischrged from there) Prescriptions: Apixaban [Eliquis] 10 mg PO BID #80 tablet
[2017-01-26] MEDS: *HR* Morphine 2 MG/ML SYRINGE IVP PRN (16:44)
[2017-01-26] MEDS: levoFLOXacin 500 MG TABLET PO SCH (20:44)
[2017-01-27] MEDS: *HR* HYDROcodone/Acet 5/325 mg TABLET PO PRN ×2 (02:29→07:49)
[2017-01-27 02:30] LABS: Basophils # 0.1 K/mcL (0.0-0.2); Basophils % 0.9 %; Eosinophils # 0.6 K/mcL (0.0-0.6); Eosinophils % 9.3 %; Hematocrit 33.4 % (37.5-50.1); Hemoglobin 10.9 g/dL (12.9-16.9); Immature Granulocytes % 0.3 % (0-4); Lymphocytes # 1.1 K/mcL (0.6-4.6); Lymphocytes % 17.4 %; Mean Corpuscular HGB Conc 32.6 g/dL (31.6-35.5); Mean Corpuscular Hemoglobin 29.7 pg (28.0-33.3); Mean Platelet Volume 9.5 fL (9.4-12.4); Monocytes # 0.7 K/mcL (0.0-1.3); Monocytes % 10.3 %; Platelet Count 396 K/mcL (140-400); Red Blood Count 3.67 M/mcL (4.19-5.50); Red Cell Distribution Width 14.2 % (11.5-14.5); Segmented Neutrophils % 61.8 %
[2017-01-27 02:41] LABS: BUN/Creatinine Ratio 13 (6-26); Blood Urea Nitrogen 10 mg/dL (8-26); Calcium 8.3 mg/dL (8.6-10.8); Carbon Dioxide 22 mEq/L (19-29); Chloride 101 mEq/L (98-109); Glucose 106 mg/dL (70-99); Magnesium 1.6 mg/dL (1.6-2.6); Osmolality,Calculated 273 (280-300); Potassium 3.9 mEq/L (3.5-4.5); Sodium 132 mEq/L (136-145); eGFR For African Americans > 60 (> 60); eGFR For Non-African Americans > 60 (> 60)
[2017-01-27] MEDS: Aspirin Enteric Coated 81 MG Tablet PO SCH (07:49)
[2017-01-27] MEDS: Furosemide 40 MG TABLET PO SCH ×2 (07:49→16:35)
--- NOTE | 2017-01-27 10:46 | Cardiothoracic Progress Note ---
Date of Encounter: 01/27/17 Time of Encounter: 10:32 - Assessment and plan (1) Diastolic CHF, acute on chronic Current Visit: Yes Status: Acute The patient remained hemodynamically stable overnigh. He had no further complaints of shortness of breath, left precordial chest pain, or left leg pain last night. His venous duplex revealed a left peroneal vein DVT in the chest CTA revealed bilateral pulmonary emboli. He is on heparin drip and will require long-term anticoagulation. The assessment and plan as outlined above was discussed with the patient and/or family members who expressed understanding and agreement. All questions were answered. - Subjective Interval history: The patient remained hemodynamically stable overnight. He had no further substernal chest pain or shortness of breath. Vital Signs, Last 4 Hours Temp Pulse Resp BP Pulse Ox 01/27/17 08:27 97.7 F 75 16 109/79 97 Oxgyen Flow Rate Oxygen Flow Rate (LPM) 2 Clinical Data, last 8 Hours Output, Urine Amount 775 Output, Urine Amount 700 Output, Urine Amount 550 Weight 01/25/17 01/26/17 01/27/17 23:59 23:59 23:59 Weight 69.9 kg 73.482 kg - Physical Examination General: Conversant, No Apparent Distress Neck: No JVD, Normal carotid pulses Cardiac: Reg Rate and Rhythm, Normal S1 and S2, No Murmur Incision: No signs of infection, Dry/intact dressing Sternum: Stable Lungs: Normal Breath Sounds, No Wheeze, Rales, Rhonchi Neuro: Alert and responsive, No focal deficits noted Vascular: Normal capillary refill Extremities: No Clubbing, No Cyanosis, Other (2+ bilateral lower extremity pitting edema.) - Labs 01/27/17 02:20 01/27/17 02:20 Lab Results, Last 24 hours 01/26/17 01/26/17 01/27/17 11:26 18:00 02:20 WBC 6.4 Hgb 10.9 L Hct 33.4 L Plt Count 396 APTT 75.5 H D 56.1 H Sodium Potassium Chloride Carbon Dioxide BUN Creatinine Glucose Calcium Magnesium 01/27/17 01/27/17 02:20 02:20 WBC Hgb Hct Plt Count APTT 101.6 H D Sodium 132 L Potassium 3.9 Chloride 101 Carbon Dioxide 22 BUN 10 Creatinine 0.76 Glucose 106 H Calcium 8.3 L Magnesium 1.6 Consult Discharge Plan - Plan Referrals: Dylon Enamorado MD [Primary Care Provider] - (Patient will follow up with [facility] PCP until dischrged from there) Prescriptions: Apixaban [Eliquis] 10 mg PO BID #80 tablet
--- NOTE | 2017-01-27 14:10 | Internal Med Progress Note ---
Date of Encounter: 01/27/17 Time of Encounter: 14:08 - Assessment and plan (1) Pulmonary embolism Current Visit: Yes Status: Acute Assessment and plan: since he still c/o rt pleurisy pain will cont heparin gtt for another 24hrs also due to his recurrent SOB and chest discomfort will repeat another 2 D echo to evaluated his RV strain if he remains CP free for 24hrs, will switch to Eliquis in AM Qualifiers: Pulmonary embolism type: other Chronicity: acute Acute cor pulmonale presence: without acute cor pulmonale Qualified Code(s): I26.99 - Other pulmonary embolism without acute cor pulmonale (2) Left leg DVT Current Visit: Yes Status: Acute Assessment and plan: No calf pain improving on heparin gtt Qualifiers: Affected thrombotic vein of extremity: other lower extremity vein Chronicity: acute Qualified Code(s): I82.492 - Acute embolism and thrombosis of other specified deep vein of left lower extremity (3) Diastolic CHF, acute on chronic Current Visit: Yes Status: Acute Assessment and plan: Reviewed repeat 2 D Echo showed normal LVEF 50-55%, Mild diastolic dysfunction switched to PO lasix negative 5 lit fluid balance so far cont Coreg, ASA, Plavix, Statin If BP allows will start him on low dose ACEI Risk assessment: Still high risk for resp failure with b/l PE and DVT, will cont heparin gtt for 48hrs... Cont current higher level of care. (4) NSTEMI (non-ST elevated myocardial infarction) Current Visit: Yes Status: Acute Assessment and plan: Troponin peaked at 1.14 and trending down Echo did not show any wall motion abnormalities Mostly demand ischemia Card is on board (5) Chest pain Current Visit: No Status: Ruled-out Assessment and plan: seems more like pleurisy pain due to PE cont heparin gtt for now Qualifiers: Chest pain type: unspecified Qualified Code(s): R07.9 - Chest pain, unspecified (6) Pneumonia Current Visit: Yes Status: Acute Assessment and plan: mostly bacterial improving cont empirical abx Levaquin # 4/7 Qualifiers: Qualified Code(s): J18.9 - Pneumonia, unspecified organism (7) Hyperlipidemia Current Visit: No Status: Acute Assessment and plan: on statin Qualifiers: Hyperlipidemia type: mixed hyperlipidemia Qualified Code(s): E78.2 - Mixed hyperlipidemia (8) S/P CABG (coronary artery bypass graft) Current Visit: Yes Status: Chronic (9) Bilateral pleural effusion Current Visit: Yes Status: Chronic Assessment and plan: due to CHF cont Diuresis (10) Right foot pain Current Visit: Yes Status: Acute Assessment and plan: possible strain however since he does have focal tenderness at MTP 3,4 joints will geta Rt foot X ray - Subjective Interval history: Mr. San is a 71 year old male with known pMH of HTN, HLD, CAD recent s/p CABG x 4 01/12/17, mild diastolic CHF , who also happened to have large b/l pleural effusion for which he had b/l thorcocentesis done on 01/16/17 and d/c d SNF for short term PT / OT. Now he is brought back to ER c/o progressively worsening SOB , MCDONNELL and 3+ pitting in edema in both legs. Pt was admitted in the hospital and started him on IV diuresis. His symptoms improved now. His edema in both legs also improved. Still has some cramping pain in Left leg. Today he c/o more SOB and Rt pleurisy pain. He also c /o Rt foot pain dorsally. - Constitutional Vitals: Temp Pulse Resp BP Pulse Ox 97.9 F 82 16 92/68 98 01/27/17 11:39 01/27/17 11:39 01/27/17 11:39 01/27/17 11:39 01/27/17 11:39 General appearance: Present: A&O X 3, no acute distress, answers questions appropriately - Head Head exam: Present: atraumatic, normal inspection - Respiratory Respiratory exam: Present: wheezes (mild). Absent: decreased breath sounds, rales, respiratory distress, rhonchi - Cardiovascular Cardiovascular exam: Present: RRR, +S1, +S2. Absent: diastolic murmur, gallop, JVD, rubs, systolic murmur - GI/Abdominal GI/Abdominal exam: Present: normal bowel sounds, soft, no peritoneal signs. Absent: distended, tenderness - Extremities Exam Extremities exam: Present: pedal edema (improved pedal edema in both legs), tenderness (mild tenderness Rt foot dorsally). Absent: calf tenderness (in both legs) - Back Exam Back exam: Absent: CVA tenderness (L), CVA tenderness (R) - Neurological Exam Neurological exam: Present: alert, oriented X3 - Psychiatric Psychiatric exam: Present: anxious Internal Medicine: Result - Labs CBC & Chem 7: 01/27/17 02:20 01/27/17 02:20 Labs: Short CBC 01/27/17 Range/Units 02:20 WBC 6.4 (4.3-11.1) K/mcL Hgb 10.9 L (12.9-16.9) g/dL Hct 33.4 L (37.5-50.1) % Plt Count 396 (140-400) K/mcL Neutrophils # 4.0 (1.6-8.9) K/mcL BMP 01/27/17 02:20 Sodium 132 L Potassium 3.9 Chloride 101 Carbon Dioxide 22 BUN 10 Creatinine 0.76 Glucose 106 H Calcium 8.3 L - ABG Interpretation ABG results: PT/INR, D-dimer PT 15.5 Seconds (9.4-12.1) H 01/24/17 09:24 Consult Discharge Plan - Plan Referrals: Dylon Enamorado MD [Primary Care Provider] - (Patient will follow up with [facility] PCP until dischrged from there) Prescriptions: Apixaban [Eliquis] 10 mg PO BID #80 tablet
[2017-01-27] MEDS: levoFLOXacin 500 MG TABLET PO SCH (20:14)
[2017-01-27] MEDS: Heparin 25,000 UNIT/500 ML D5W 25,000 UNIT/500 ML MLS IVC SCH (20:50)
[2017-01-28] MEDS: *HR* Morphine 2 MG/ML SYRINGE IVP PRN (00:12)
[2017-01-28] MEDS: *HR* HYDROcodone/Acet 5/325 mg TABLET PO PRN ×2 (02:45→14:24)
[2017-01-28] MEDS: Furosemide 40 MG TABLET PO SCH (08:46)
[2017-01-28] MEDS: APIXABAN 5 MG TABLET PO SCH ×2 (08:59→20:13)
[2017-01-28] MEDS: Aspirin Enteric Coated 81 MG Tablet PO SCH (08:59)
--- NOTE | 2017-01-28 13:57 | Internal Med Progress Note ---
Date of Encounter: 01/28/17 Time of Encounter: 08:30 - Assessment and plan (1) Pulmonary embolism Current Visit: Yes Status: Acute Assessment and plan: Improving switched to Eliquis today Reviewed his repeat 2 D Echo - no RV strain noticed Qualifiers: Pulmonary embolism type: other Chronicity: acute Acute cor pulmonale presence: without acute cor pulmonale Qualified Code(s): I26.99 - Other pulmonary embolism without acute cor pulmonale (2) Left leg DVT Current Visit: Yes Status: Acute Assessment and plan: No calf pain improving switched to Eliquis today Qualifiers: Affected thrombotic vein of extremity: other lower extremity vein Chronicity: acute Qualified Code(s): I82.492 - Acute embolism and thrombosis of other specified deep vein of left lower extremity (3) Diastolic CHF, acute on chronic Current Visit: Yes Status: Acute Assessment and plan: Reviewed repeat 2 D Echo showed normal LVEF 50-55%, Mild diastolic dysfunction switched to PO lasix..changed to 20mg BID negative 5 lit fluid balance so far cont Coreg, ASA, Plavix, Statin If BP allows will start him on low dose ACEI (4) NSTEMI (non-ST elevated myocardial infarction) Current Visit: Yes Status: Acute Assessment and plan: Troponin peaked at 1.14 and trending down Echo did not show any wall motion abnormalities Mostly demand ischemia Card is on board (5) Chest pain Current Visit: No Status: Ruled-out Assessment and plan: seems more like pleurisy pain due to PE improving Qualifiers: Chest pain type: unspecified Qualified Code(s): R07.9 - Chest pain, unspecified (6) Pneumonia Current Visit: Yes Status: Acute Assessment and plan: mostly bacterial improving cont empirical abx Levaquin # 6/7 Qualifiers: Qualified Code(s): J18.9 - Pneumonia, unspecified organism (7) Hyperlipidemia Current Visit: No Status: Acute Assessment and plan: on statin Qualifiers: Hyperlipidemia type: mixed hyperlipidemia Qualified Code(s): E78.2 - Mixed hyperlipidemia (8) S/P CABG (coronary artery bypass graft) Current Visit: Yes Status: Chronic (9) Bilateral pleural effusion Current Visit: Yes Status: Chronic Assessment and plan: due to CHF cont Diuresis (10) Right foot pain Current Visit: Yes Status: Acute Assessment and plan: possible strain Reviewed Rt foot X ray no acute fracture (11) Urinary retention Current Visit: Yes Status: Acute Assessment and plan: mostly due to severe deconditioning His posi voided bladde scan -400cc will do one time straight cath ordered q shift bladder scan enourage to urine more frquently started him on flomax Urology consulted - Subjective Interval history: Mr. San is a 71 year old male with known pMH of HTN, HLD, CAD recent s/p CABG x 4 01/12/17, mild diastolic CHF , who also happened to have large b/l pleural effusion for which he had b/l thorcocentesis done on 01/16/17 and d/c d SNF for short term PT / OT. Now he is brought back to ER c/o progressively worsening SOB , MCDONNELL and 3+ pitting in edema in both legs. Pt was admitted in the hospital and started him on IV diuresis. His symptoms improved now. His edema in both legs also improved. Still has some cramping pain in Left leg. Today he feels little better. Still have mild intermittent Rt pleurisy pain. - Constitutional Vitals: Temp Pulse Resp BP Pulse Ox 97.7 F 83 13 101/70 98 01/28/17 11:59 01/28/17 11:59 01/28/17 11:59 01/28/17 11:59 01/28/17 11:59 General appearance: Present: A&O X 3, no acute distress, answers questions appropriately - Head Head exam: Present: atraumatic, normal inspection - Neck Neck exam general surgery: Present: supple - Respiratory Respiratory exam: Present: decreased breath sounds. Absent: rales, respiratory distress, rhonchi, wheezes - Cardiovascular Cardiovascular exam: Present: RRR, +S1, +S2. Absent: systolic murmur - GI/Abdominal GI/Abdominal exam: Present: normal bowel sounds, soft. Absent: rebound, rigid, tenderness - Extremities Exam Extremities exam: Present: pedal edema (1+). Absent: calf tenderness, tenderness - Back Exam Back exam: Absent: CVA tenderness (L), CVA tenderness (R) - Neurological Exam Neurological exam: Present: alert, oriented X3 - Psychiatric Psychiatric exam: Present: normal affect, normal mood Internal Medicine: Result - Labs CBC & Chem 7: 01/27/17 02:20 01/27/17 02:20 - ABG Interpretation ABG results: PT/INR, D-dimer PT 15.5 Seconds (9.4-12.1) H 01/24/17 09:24 - Impressions Impressions Echocardiogram 01/27/17 10:28 Impressions: LVEF 50-55%. Normal LV chamber size, wall thickness and overall function. Segmental left ventricular systolic dysfunction. Mild left ventricular diastolic dysfunction. Normal right ventricular structure and function. No significant valvular dysfunction. Unable to estimate RVSP due to lack of TR jet. Pleural effusion noted. The proximal tubular portion of the aortic root measures 4.0 cm. Left Ventricular Wall Motion: Rest Echo Findings The basal inferior, basal inferior septal, mid inferior lateral and basal inferior lateral thomas were hypokinetic. All other wall segments showed normal motion. Findings: Study Quality * Technically adequate exam. ECG Findings * Normal sinus rhythm. Left Ventricle * LVEF 50-55%. * Normal LV chamber size, wall thickness and overall function. * Segmental left ventricular systolic dysfunction. * Mild left ventricular diastolic dysfunction. Right Ventricle * Normal right ventricular structure and function. Left Atrium * Mildly dilated left atrium. Right Atrium * Normal right atrial size. Interatrial Septum * Interatrial septum not well evaluated. Aortic Valve * Trileaflet aortic valve. * No aortic regurgitation. * No aortic stenosis. Mitral Valve * Normal mitral valve structure and function. * No mitral regurgitation. * No mitral stenosis. Tricuspid Valve * Normal tricuspid valve structure and function. * No tricuspid regurgitation. * Unable to estimate RVSP due to lack of TR jet. Pulmonic Valve * Pulmonic valve not well visualized. * No pulmonic regurgitation. Aorta * The proximal tubular portion of the aortic root measures 4.0 cm. Pericardium * The pericardium appears normal. IVC * Normal IVC dimensions and inspiratory collapse. Pulmonary Artery * Normal visualized portions of the main pulmonary artery. Pleural Effusion * Pleural effusion noted. Foot X-Ray 01/27/17 14:15 IMPRESSION: No acute finding in the right foot. D/ / Alfredo Nolan MD / Alfredo Nolan MD Interpreting Provider: Alfredo Nolan MD Consult Discharge Plan - Plan Referrals: Dylon Enamorado MD [Primary Care Provider] - (Patient will follow up with [facility] PCP until dischrged from there) Prescriptions: Apixaban [Eliquis] 10 mg PO BID #80 tablet
[2017-01-28] MEDS: *HR* LORazepam 0.5 MG TABLET PO PRN (14:56)
[2017-01-28] MEDS: Furosemide 20 MG TABLET PO SCH (17:31)
[2017-01-28] MEDS: levoFLOXacin 500 MG TABLET PO SCH (20:13)
[2017-01-29] MEDS: *HR* HYDROcodone/Acet 5/325 mg TABLET PO PRN ×3 (02:43→20:26)
[2017-01-29 02:53] LABS: Basophils % 0.6 %; Eosinophils # 0.5 K/mcL (0.0-0.6); Eosinophils % 7.4 %; Hemoglobin 10.5 g/dL (12.9-16.9); Immature Granulocytes % 0.3 % (0-4); Lymphocytes # 0.9 K/mcL (0.6-4.6); Lymphocytes % 14.7 %; Mean Corpuscular HGB Conc 32.8 g/dL (31.6-35.5); Mean Corpuscular Volume 91.4 fL (83.0-100.0); Mean Platelet Volume 9.4 fL (9.4-12.4); Monocytes # 0.6 K/mcL (0.0-1.3); Monocytes % 9.8 %; Neutrophils # 4.3 K/mcL (1.6-8.9); Platelet Count 349 K/mcL (140-400); Red Cell Distribution Width 14.1 % (11.5-14.5); Segmented Neutrophils % 67.2 %
[2017-01-29] MEDS: *HR* LORazepam 0.5 MG TABLET PO PRN (03:48)
[2017-01-29] MEDS: Aspirin Enteric Coated 81 MG Tablet PO SCH (07:21)
[2017-01-29] MEDS: APIXABAN 5 MG TABLET PO SCH ×2 (07:21→20:26)
[2017-01-29] MEDS: Furosemide 20 MG TABLET PO SCH ×2 (07:21→16:18)
--- NOTE | 2017-01-29 10:06 | Cardiothoracic Progress Note ---
Date of Encounter: 01/29/17 Time of Encounter: 09:37 - Assessment and plan (1) Diastolic CHF, acute on chronic Current Visit: Yes Status: Acute The patient remained hemodynamically stable overnigh. He had no further complaints of shortness of breath, left precordial chest pain, or left leg pain last night. His venous duplex revealed a left peroneal vein DVT in the chest CTA revealed bilateral pulmonary emboli. He started Eliquis yesterday for require long-term anticoagulation. The assessment and plan as outlined above was discussed with the patient and/or family members who expressed understanding and agreement. All questions were answered. - Subjective Interval history: The patient remained hemodynamically stable overnight. He is breathing comfortably. Vital Signs, Last 4 Hours Temp Pulse Resp BP Pulse Ox 01/29/17 06:50 97.7 F 84 18 89/58 98 Oxgyen Flow Rate Oxygen Flow Rate (LPM) 2 Clinical Data, last 8 Hours Output, Urine Amount 200 Output, Urine Amount 300 Weight 01/27/17 01/28/17 01/29/17 23:59 23:59 23:59 Weight 73.198 kg - Physical Examination General: Conversant, No Apparent Distress Neck: No JVD, Normal carotid pulses Cardiac: Reg Rate and Rhythm, Normal S1 and S2, No Murmur Incision: No signs of infection, Dry/intact dressing Sternum: Stable Lungs: Normal Breath Sounds, No Wheeze, Rales, Rhonchi Neuro: Alert and responsive, No focal deficits noted Vascular: Normal capillary refill Extremities: No Clubbing, No Cyanosis, No Edema, Normal Pulses - Labs 01/29/17 02:45 01/27/17 02:20 Lab Results, Last 24 hours 01/28/17 01/29/17 14:50 02:45 WBC 6.3 Hgb 10.5 L Hct 32.0 L Plt Count 349 Troponin I 0.24 H* Consult Discharge Plan - Plan Referrals: Dylon Enamorado MD [Primary Care Provider] - (Patient will follow up with [facility] PCP until dischrged from there) Prescriptions: Apixaban [Eliquis] 10 mg PO BID #80 tablet
--- NOTE | 2017-01-29 16:52 | Urology - Consult Note ---
Date of Encounter: 01/29/17 Time of Encounter: 16:50 - Assessment and Plan (1) Urinary retention Current Visit: Yes Status: Acute Assessment and plan: 71-year-old man with BPH and incomplete bladder emptying. Tamsulosin has been started which is reasonable. I also recommend adding on finasteride 5 mg daily to provide some combination therapy. We briefly discussed surgical treatment for BPH such as a TURP or a greenlight photo vaporization of prostate. With his recent pulmonary emboli, the surgery would be deferred for at least 6 months. At this time he is emptying adequately. I would hold off on further straight catheterizations unless he is not able to void at all. At that point, we would consider a Hartley catheter replaced. He can follow-up with me as an outpatient in 2 weeks. (2) Elevated PSA Current Visit: Yes Status: Acute Assessment and plan: 71-year-old man with elevated PSA. Given his other medical comorbidities, I do not think it is advisable to proceed in the short-term with a prostate biopsy. The elevation in the PSA is likely due to BPH. I discussed the risks and benefits of prostate cancer screening. We discussed how PSA will rise in men as they age from a benign standpoint. He is above an age adjusted value for a man in his 70s, but with his current medical condition, we will defer on further workup of his elevated PSA until his anticoagulants are no longer needed. Urology CN:MALINA Consult date: 01/29/17 Reason for consult Urology: Other (Incomplete bladder emptying) History of present illness: 71 year old man was admitted for a pulmonary embolus. He has some sensations of incomplete emptying. Bladder scans were performed which showed elevated residuals. He reports that there were 2 attempts at placing a straight catheter , but they were unable to do so. He has slowing of his stream and incomplete emptying. This has been noted from a long time. He recently started tamsulosin while in the hospital and says that this has improved his stream. He also mentions a history of an elevated PSA. His most recent PSA was 7.17 from January 09, 2017. He denies having a previous biopsy. Past Med Surg Social Fam HX - Past Medical History Medical history: hyperlipidemia, hypertension, myocardial infarction, other Psychiatric history: no psych history - Past Surgical History Surgical History: coronary bypass (CABG), orthopedic, other, other - Social History Smoking Status: Never smoker Smokeless Tobacco Status: No Alcohol use: none Drug use: none - Family History Mother Living Status: Cause of : Heart attack Hx Family Cardiac Disorders: Yes (CAD/[place]) Father Living Status: Hx Family Cardiac Disorders: Yes Hx Family Cancer: Yes Hx Family GI Disorders: Yes Brother Living Status: Still Living Hx Family Cancer: Yes Hx Family GI Disorders: Yes Sister Living Status: Still Living Hx Family Cancer: Yes Hx Family GI Disorders: Yes Hx Family Autoimmune Disorders: Yes (RA) Medications and Allergies Aspirin Enteric Coated [Aspirin EC] 81 mg PO DAILY #60 tablet.dr 01/18/17 [Rx] Atorvastatin [Lipitor] 80 mg PO HS #60 tablet 01/18/17 [Rx] Clopidogrel [Plavix] 75 mg PO DAILY #30 tablet 01/18/17 [Rx] MOM Conc [MILK OF MAGNESIA conc] 10 ml PO DAILY PRN ud.liq 01/18/17 [Rx] Metoprolol [Lopressor] 12.5 mg PO BID #60 tablet 01/18/17 [Rx] OxyCODONE/APAP 5/325 [Percocet 5/325 MG] 1 each PO Q4HR PRN #30 tablet 01/18/17 [Rx] Apixaban [Eliquis] 10 mg PO BID #80 tablet 01/26/17 [Rx] 3 Allergy/AdvReac Type Severity Reaction Status Date / Time No Known Allergies Allergy Verified 12/28/14 09:41 Review of Systems - Constitutional no chills, no fever(s) - EENT Nose, mouth and throat: no dizziness - Cardiovascular no chest pain - Respiratory no dyspnea - Gastrointestinal no nausea, no vomiting - Genitourinary no flank pain, no hematuria - Musculoskeletal no back pain - Integumentary no erythema, no rash - Neurological no weakness - Psychiatric no suicidal ideation - Hematologic/Lymphatic no easy bleeding - Allergic/Immunologic no wheezing Exam Initial Vital Signs Temp Pulse Resp BP Pulse Ox 97.3 F L 73 16 115/87 93 01/22/17 13:28 01/22/17 13:28 01/22/17 13:28 01/22/17 13:28 01/22/17 13:28 - General physical appearance Present: well developed, well nourished, no distress - Eyes Absent: icteric - ENT Present: normal mucosa - Neck Present: trachea midline - Respiratory Present: normal respiratory effort - Cardiovascular Cardiovascular exam IM: RRR - Abdomen Abdomen: Present: soft Urology Results - Labs 01/29/17 02:45 01/27/17 02:20 Abnormal lab results RBC 3.50 M/mcL (4.19-5.50) L 01/29/17 02:45 Hgb 10.5 g/dL (12.9-16.9) L 01/29/17 02:45 Hct 32.0 % (37.5-50.1) L 01/29/17 02:45 PT 15.5 Seconds (9.4-12.1) H 01/24/17 09:24 APTT 79.0 Seconds (26.0-36.0) H 01/28/17 00:16 Sodium 132 mEq/L (136-145) L 01/27/17 02:20 Glucose 106 mg/dL (70-99) H 01/27/17 02:20 POC Glucose 175 (58-89) H 01/29/17 11:29 Calculated Osmolality 273 (280-300) L 01/27/17 02:20 Calcium 8.3 mg/dL (8.6-10.8) L 01/27/17 02:20 Troponin I 0.24 ng/mL (0-0.03) H* 01/28/17 14:50 B-Natriuretic Peptide 1167 pg/mL (0-100) H 01/23/17 05:10 Albumin 2.3 g/dL (3.5-5.0) L 01/23/17 05:10 Globulin 4.0 g/dL (2.4-3.5) H 01/23/17 05:10 Albumin/Globulin Ratio 0.6 (1.1-2.2) L 01/23/17 05:10 HDL Cholesterol 26 mg/dL (40-59) L 01/23/17 05:10 All other labs normal. Consult Discharge Plan - Plan Referrals: Dylon Enamorado MD [Primary Care Provider] - (Patient will follow up with [facility] PCP until dischrged from there) Prescriptions: Apixaban [Eliquis] 10 mg PO BID #80 tablet
--- NOTE | 2017-01-29 18:36 | Internal Med Progress Note ---
Date of Encounter: 01/29/17 Time of Encounter: 08:00 - Assessment and plan (1) Pulmonary embolism Current Visit: Yes Status: Acute Assessment and plan: Improving Started on Eliquis on 01/28/17 Reviewed his repeat 2 D Echo - no RV strain noticed Qualifiers: Pulmonary embolism type: other Chronicity: acute Acute cor pulmonale presence: without acute cor pulmonale Qualified Code(s): I26.99 - Other pulmonary embolism without acute cor pulmonale (2) Left leg DVT Current Visit: Yes Status: Acute Assessment and plan: Cont Eliquis today Pt's multiple complaints seems to be anxiety related however for dx purpose will do b/l LE venous Doppler Qualifiers: Affected thrombotic vein of extremity: other lower extremity vein Chronicity: acute Qualified Code(s): I82.492 - Acute embolism and thrombosis of other specified deep vein of left lower extremity (3) Diastolic CHF, acute on chronic Current Visit: Yes Status: Acute Assessment and plan: Reviewed repeat 2 D Echo showed normal LVEF 50-55%, Mild diastolic dysfunction switched to PO lasix..changed to 20mg BID negative 5 lit fluid balance so far cont Coreg, ASA, Plavix, Statin If BP allows will start him on low dose ACEI (4) NSTEMI (non-ST elevated myocardial infarction) Current Visit: Yes Status: Acute Assessment and plan: Troponin peaked at 1.14 and trending down Echo did not show any wall motion abnormalities Mostly demand ischemia Card is on board (5) Chest pain Current Visit: No Status: Ruled-out Assessment and plan: seems more like pleurisy pain due to PE improving Qualifiers: Chest pain type: unspecified Qualified Code(s): R07.9 - Chest pain, unspecified (6) Pneumonia Current Visit: Yes Status: Acute Assessment and plan: mostly bacterial improving finished abx Levaquin # 7/7 Qualifiers: Qualified Code(s): J18.9 - Pneumonia, unspecified organism (7) Hyperlipidemia Current Visit: No Status: Acute Assessment and plan: on statin Qualifiers: Hyperlipidemia type: mixed hyperlipidemia Qualified Code(s): E78.2 - Mixed hyperlipidemia (8) S/P CABG (coronary artery bypass graft) Current Visit: Yes Status: Chronic (9) Bilateral pleural effusion Current Visit: Yes Status: Chronic Assessment and plan: due to CHF cont Diuresis (10) Right foot pain Current Visit: Yes Status: Acute Assessment and plan: possible strain Reviewed Rt foot X ray no acute fracture (11) Urinary retention Current Visit: Yes Status: Acute Assessment and plan: mostly due to BPH encourage to urine more frequently started him on flomax - Subjective Interval history: Mr. San is a 71 year old male with known pMH of HTN, HLD, CAD recent s/p CABG x 4 01/12/17, mild diastolic CHF , who also happened to have large b/l pleural effusion for which he had b/l thorcocentesis done on 01/16/17 and d/c d SNF for short term PT / OT. Now he is brought back to ER c/o progressively worsening SOB , MCDONNELL and 3+ pitting in edema in both legs. Pt was admitted in the hospital and started him on IV diuresis. His symptoms improved now. His edema in both legs also improved. Still has some cramping pain in Left leg. Still have mild intermittent Rt pleurisy pain. Also c /o Left thigh and Rt calf pain which is new today. - Constitutional Vitals: Temp Pulse Resp BP Pulse Ox 97.4 F L 101 18 116/70 98 01/29/17 16:27 01/29/17 16:27 01/29/17 16:27 01/29/17 16:27 01/29/17 16:27 General appearance: Present: A&O X 3, no acute distress, answers questions appropriately - Head Head exam: Present: atraumatic, normal inspection - Neck Neck exam general surgery: Present: supple - Respiratory Respiratory exam: Present: decreased breath sounds. Absent: rales, respiratory distress, rhonchi, wheezes - Cardiovascular Cardiovascular exam: Present: RRR, +S1, +S2. Absent: tachycardia - GI/Abdominal GI/Abdominal exam: Present: normal bowel sounds, soft. Absent: rebound, rigid, tenderness - Extremities Exam Extremities exam: Present: calf tenderness, pedal edema (improved), tenderness ( Left thigh and calf tenderness.. Rt calf tednerness) - Back Exam Back exam: Absent: CVA tenderness (L), CVA tenderness (R) - Neurological Exam Neurological exam: Present: alert, oriented X3 Internal Medicine: Result - Labs CBC & Chem 7: 01/29/17 02:45 01/27/17 02:20 Labs: Short CBC 01/29/17 Range/Units 02:45 WBC 6.3 (4.3-11.1) K/mcL Hgb 10.5 L (12.9-16.9) g/dL Hct 32.0 L (37.5-50.1) % Plt Count 349 (140-400) K/mcL Neutrophils # 4.3 (1.6-8.9) K/mcL - ABG Interpretation ABG results: PT/INR, D-dimer PT 15.5 Seconds (9.4-12.1) H 01/24/17 09:24 Consult Discharge Plan - Plan Referrals: Dylon Enamorado MD [Primary Care Provider] - (Patient will follow up with [facility] PCP until dischrged from there) Prescriptions: Apixaban [Eliquis] 10 mg PO BID #80 tablet
[2017-01-29] MEDS: levoFLOXacin 500 MG TABLET PO SCH (20:26)
[2017-01-30] MEDS: *HR* HYDROcodone/Acet 5/325 mg TABLET PO PRN ×3 (03:10→15:11)
--- NOTE | 2017-01-30 07:30 | Cardiothoracic Progress Note ---
Date of Encounter: 01/30/17 Time of Encounter: 07:28 - Assessment and plan (1) Diastolic CHF, acute on chronic Current Visit: Yes Status: Acute The patient remained hemodynamically stable overnight. He had no further complaints of shortness of breath, left precordial chest pain, or left leg pain last night. His venous duplex revealed a left peroneal vein DVT in the chest CTA revealed bilateral pulmonary emboli. He is on Eliquis for require long-term anticoagulation. The assessment and plan as outlined above was discussed with the patient and/or family members who expressed understanding and agreement. All questions were answered. - Subjective Interval history: The patient remained hemodynamically stable overnight. He is breathing comfortably. Vital Signs, Last 4 Hours Temp Pulse Resp BP Pulse Ox 01/30/17 04:03 98.3 F 82 16 96/65 98 Oxgyen Flow Rate Oxygen Flow Rate (LPM) 2 Clinical Data, last 8 Hours Output, Urine Amount 0 Output, Urine Amount 200 Weight 01/28/17 01/29/17 01/30/17 23:59 23:59 23:59 Weight 73.198 kg 71.3 kg - Physical Examination General: Conversant, No Apparent Distress Neck: No JVD, Normal carotid pulses Cardiac: Reg Rate and Rhythm, Normal S1 and S2, No Murmur Incision: No signs of infection, Dry/intact dressing Sternum: Stable Lungs: Normal Breath Sounds, No Wheeze, Rales, Rhonchi Neuro: Alert and responsive, No focal deficits noted Vascular: Normal capillary refill Extremities: No Clubbing, No Cyanosis, No Edema, Normal Pulses - Labs 01/29/17 02:45 01/27/17 02:20 Consult Discharge Plan - Plan Referrals: Dylon Enamorado MD [Primary Care Provider] - (Patient will follow up with [facility] PCP until dischrged from there) Prescriptions: Apixaban [Eliquis] 10 mg PO BID #80 tablet
[2017-01-30] MEDS: Furosemide 20 MG TABLET PO SCH ×2 (08:26→17:38)
[2017-01-30] MEDS: Finasteride 5 MG TABLET PO SCH (08:26)
[2017-01-30] MEDS: APIXABAN 5 MG TABLET PO SCH ×2 (08:26→21:27)
[2017-01-30] MEDS: Aspirin Enteric Coated 81 MG Tablet PO SCH (08:26)
--- NOTE | 2017-01-30 09:32 | Discharge Summary ---
<Umang Silva - Last Filed: 01/30/17 09:29> Date of Encounter: 01/30/17 Time of Encounter: 09:29 - Discharge Diagnosis (1) Pulmonary embolism Priority: Primary Status: Acute Qualifiers: Pulmonary embolism type: other Chronicity: acute Acute cor pulmonale presence: without acute cor pulmonale Qualified Code(s): I26.99 - Other pulmonary embolism without acute cor pulmonale (2) Left leg DVT Priority: Primary Status: Acute Qualifiers: Affected thrombotic vein of extremity: other lower extremity vein Chronicity: acute Qualified Code(s): I82.492 - Acute embolism and thrombosis of other specified deep vein of left lower extremity (3) NSTEMI (non-ST elevated myocardial infarction) Priority: Primary Status: Acute (4) Diastolic CHF, acute on chronic Priority: Primary Status: Acute (5) Hyperlipidemia Priority: Secondary Status: Chronic Qualifiers: Hyperlipidemia type: mixed hyperlipidemia Qualified Code(s): E78.2 - Mixed hyperlipidemia (6) Bilateral pleural effusion Priority: Secondary Status: Chronic (7) Pneumonia Priority: Primary Status: Acute Qualifiers: Qualified Code(s): J18.9 - Pneumonia, unspecified organism (8) Urinary retention Priority: Secondary Status: Chronic - Discharge Medications Prescriptions: OxyCODONE/APAP 5/325 [Percocet 5/325 MG] 1 each PO Q4HR PRN #20 tablet PRN Reason: Severe Pain Apixaban [Eliquis] 5 mg PO BID #60 tablet LORazepam [Ativan] 0.5 mg PO TID PRN #15 tablet PRN Reason: Anxiety Home Medications: Aspirin Enteric Coated [Aspirin EC] 81 mg PO DAILY #60 tablet. 01/18/17 [Rx] Atorvastatin [Lipitor] 80 mg PO HS #60 tablet 01/18/17 [Rx] Clopidogrel [Plavix] 75 mg PO DAILY #30 tablet 01/18/17 [Rx] MOM Conc [MILK OF MAGNESIA conc] 10 ml PO DAILY PRN ud.liq 01/18/17 [Rx] Apixaban [Eliquis] 5 mg PO BID #60 tablet 01/30/17 [Rx] Apixaban [Eliquis] 10 mg PO BID #9 tablet 01/30/17 [Rx] Carvedilol [Coreg] 3.125 mg PO BIDWM tablet 01/30/17 [Rx] Docusate [Colace] 100 mg PO BID PRN capsule 01/30/17 [Rx] Finasteride [Proscar] 5 mg PO DAILY tablet 01/30/17 [Rx] Furosemide [Lasix] 20 mg PO BIDDIURETIC tablet 01/30/17 [Rx] LORazepam [Ativan] 0.5 mg PO TID PRN #15 tablet 01/30/17 [Rx] Nitroglycerin 0.4 mg SL Q5MIN PRN tab.subl 01/30/17 [Rx] OxyCODONE/APAP 5/325 [Percocet 5/325 MG] 1 each PO Q4HR PRN #20 tablet 01/30/17 [Rx] Tamsulosin [Flomax] 0.4 mg PO DAILY capsule 01/30/17 [Rx] levoFLOXacin [Levaquin] 500 mg PO Q24H #4 tablet 01/30/17 [Rx] Allergies/Adverse Reactions: 3 Allergy/AdvReac Type Severity Reaction Status Date / Time No Known Allergies Allergy Verified 12/28/14 09:41 Procedures/tests Complete & Pending: Procedures Performed prior 72 hours Category Date Time Status EKG [ECG 12 lead ECG] [ECG] Stat Y 01/28/17 14:33 Completed EV echocardiogram Routine Y 01/27/17 10:28 Completed Venous Doppler [EV venous imaging LE BI] Routine Y 01/29/17 08:04 Completed Date of admission: 01/22/17 16:43 Primary care physician: Dylon Enamorado MD Consults: 01/23/17 00:26 Consult to Cardiology [CONS] Routine Comment: Consulting Provider: Cardiology Nelly Reason for Consult: NSTEMI, elevated troponin Time Notified: 00:25 Call Completed: Yes 01/23/17 07:29 Consult to Multi Line Claims Adjuster [CONS] Routine Reason for SW Consult: rtn signature 01/28/17 14:01 Consult to Urology [CONS] Routine Consulting Provider: Urology Nelly Reason for Consult: Acute urinary retention Call Completed: Yes Discharging clinician: Umang Silva Anticipated date of discharge: 01/30/17 - Patient Status Disposition: Transfer SNF Condition: Fair Functional capacity at discharge: independent ambulation (With assistance) Overall status at discharge: patient is progressing back to baseline - Discharge Instructions Follow Up With: Dylon Enamorado MD [Primary Care Provider] - (Patient will follow up with [facility] PCP until dischrged from there) Krunal Rouse MD [Partnered Physician] - (2 weeks) Varinder Evans DO [Partnered Physician] - 02/14/17 3:30 pm (As scheduled) Haylee Espinoza MD [Partnered Physician] - 02/22/17 1:00 pm (As scheduled) Additional Instructions: Please resume your home medications. Please take Lasix twice a day. Please take apixiban 10 mg twice a day for 4 more days and then 5 mg twice a day thereafter. Please participate in physical therapy as tolerated. Please follow-up with cardiothoracic surgery, cardiology, urology as scheduled. Please return for any new or worsening symptoms. - Diet and Activity Activity: as per physical therapy, increase activity as tolerated Diet: low salt diet Interval History: Patient seen and examined at bedside. Patient states that he feels pretty good today. He does report mild chest pain and shortness of breath that has been present since his recent open heart surgery. He feels like this is gradually improving. He feels like he is ready to go but would like to work with therapy one more time this morning. Hospital course: Mr. San is a 71 year old male with history of coronary artery disease status post bypass surgery on 01/12/2017 who presented with worsening shortness of breath and bilateral lower extremity edema. He was diagnosed with acute on chronic diastolic heart failure. Patient underwent IV diuresis and had his beta arlin changed from Lopressor to Coreg. Shortly after admission the patient was complaining of leg pain and lower extremity Doppler was positive for DVT and CTA of the chest was positive for pulmonary embolism. The patient was placed on a heparin drip and transitioned to apixaban for long-term anticoagulation. Patient did not have evidence of right heart strain. Patient also had some difficulty urinating, urology was consulted, and felt this was related to BPH. Patient was started on tamsulosin and finasteride was added. Patient has been gradually improving and is stable for discharge back to [facility] for continuing rehabilitation. Patient will be discharged in stable condition. - Time Spent with Patient Total time spent providing and/or coordinating discharge services: - Constitutional Vitals: Temp Pulse Resp BP Pulse Ox 98.2 F 85 17 98/62 98 01/30/17 08:05 01/30/17 08:05 01/30/17 08:05 01/30/17 08:05 01/30/17 08:05 General appearance: Present: A&O X 3, no acute distress, answers questions appropriately - Respiratory Respiratory exam: Present: decreased breath sounds (bibasilar). Absent: rales, respiratory distress, rhonchi, wheezes, tachypnea - Cardiovascular Cardiovascular exam: Present: RRR. Absent: gallop, rubs, systolic murmur Additional comments: Median sternotomy incision is clean dry and intact. - GI/Abdominal GI/Abdominal exam: Present: normal bowel sounds, soft. Absent: distended, tenderness - Extremities Exam Extremities exam: Present: warm. Absent: pedal edema, tenderness - Neurological Exam Neurological exam: Present: alert, CN II-XII intact, oriented X3, no focal deficits <Anders Sandoval - Last Filed: 01/30/17 17:07> Date of Encounter: 01/30/17 Procedures/tests Complete & Pending: Procedures Performed prior 72 hours Category Date Time Status EKG [ECG 12 lead ECG] [ECG] Stat Y 01/28/17 14:33 Completed Venous Doppler [EV venous imaging LE BI] Routine Y 01/29/17 08:04 Completed Date of admission: 01/22/17 16:43 Primary care physician: Dylon Enamorado MD Consults: 01/23/17 00:26 Consult to Cardiology [CONS] Routine Comment: Consulting Provider: Cardiology Nelly Reason for Consult: NSTEMI, elevated troponin Time Notified: 00:25 Call Completed: Yes 01/23/17 07:29 Consult to Multi Line Claims Adjuster [CONS] Routine Reason for SW Consult: rtn signature 01/28/17 14:01 Consult to Urology [CONS] Routine Consulting Provider: Urology Nelly Reason for Consult: Acute urinary retention Call Completed: Yes Hospital course: Mr. San is a 71 year old male - Time Spent with Patient Total time spent providing and/or coordinating discharge services: - Constitutional Vitals: Temp Pulse Resp BP Pulse Ox 97.6 F 96 16 96/60 98 01/30/17 16:01 01/30/17 16:01 01/30/17 16:01 01/30/17 16:01 01/30/17 16:01 - Attending Attestation I conducted a face to face diagnostic evaluation of this patient and my medical decision-making was reviewed with the Resident Physician, Dr. Umang Silva. I agree with the documented findings, disposition and treatment plan as described except to the extent set forth below: Patient has bilateral edema left greater than the right. Heart is regular. Lungs auscultation reveals crackles. Patient complains of chest pain and shortness of breath unchanged from yesterday. This is consistent with his Benson of recent PE. We will continue with diuresis, anticoagulation with [facility]. Continue PT OT.
--- NOTE | 2017-01-30 09:51 | Physician Discharge Referral ---
<Umang Silva - Last Filed: 01/30/17 09:50> ExtendedCare Referral Info Transfer To: [facility] Provider in Charge after Transfer: PCP Institutional Level of Care: Skilled - Diagnosis (1) Pulmonary embolism Priority: Primary Status: Acute (2) Left leg DVT Priority: Primary Status: Acute (3) NSTEMI (non-ST elevated myocardial infarction) Priority: Primary Status: Acute (4) Diastolic CHF, acute on chronic Priority: Primary Status: Acute (5) Hyperlipidemia Priority: Secondary Status: Chronic (6) Bilateral pleural effusion Priority: Secondary Status: Chronic (7) Pneumonia Priority: Primary Status: Acute (8) Urinary retention Priority: Secondary Status: Chronic Prognosis: Fair Aware of Diagnosis: Patient, Family Aware of Prognosis: Patient, Family - Transfer Medications Prescriptions: OxyCODONE/APAP 5/325 [Percocet 5/325 MG] 1 each PO Q4HR PRN #20 tablet PRN Reason: Severe Pain Apixaban [Eliquis] 5 mg PO BID #60 tablet LORazepam [Ativan] 0.5 mg PO TID PRN #15 tablet PRN Reason: Anxiety Home Medications: Aspirin Enteric Coated [Aspirin EC] 81 mg PO DAILY #60 tablet.dr 01/18/17 [Rx] Atorvastatin [Lipitor] 80 mg PO HS #60 tablet 01/18/17 [Rx] Clopidogrel [Plavix] 75 mg PO DAILY #30 tablet 01/18/17 [Rx] MOM Conc [MILK OF MAGNESIA conc] 10 ml PO DAILY PRN ud.liq 01/18/17 [Rx] Apixaban [Eliquis] 5 mg PO BID #60 tablet 01/30/17 [Rx] Apixaban [Eliquis] 10 mg PO BID #9 tablet 01/30/17 [Rx] Carvedilol [Coreg] 3.125 mg PO BIDWM tablet 01/30/17 [Rx] Docusate [Colace] 100 mg PO BID PRN capsule 01/30/17 [Rx] Finasteride [Proscar] 5 mg PO DAILY tablet 01/30/17 [Rx] Furosemide [Lasix] 20 mg PO BIDDIURETIC tablet 01/30/17 [Rx] LORazepam [Ativan] 0.5 mg PO TID PRN #15 tablet 01/30/17 [Rx] Nitroglycerin 0.4 mg SL Q5MIN PRN tab.subl 01/30/17 [Rx] OxyCODONE/APAP 5/325 [Percocet 5/325 MG] 1 each PO Q4HR PRN #20 tablet 01/30/17 [Rx] Tamsulosin [Flomax] 0.4 mg PO DAILY capsule 01/30/17 [Rx] levoFLOXacin [Levaquin] 500 mg PO Q24H #4 tablet 01/30/17 [Rx] Allergies/Adverse Reactions: 3 Allergy/AdvReac Type Severity Reaction Status Date / Time No Known Allergies Allergy Verified 12/28/14 09:41 - Respiratory Orders None Smoking Cessation: Smoking cessation has been advised. For more information, call the [place] [employer] Quit Line at 1-519-VJMG-NOW. - Ancillary Orders May use pressure relief devices daily prn - Advance Directives Code Status: Full Code - Mobility Orders Ambulate (with assist/PT) - Rehabiliation Orders Rehab Potential: Fair Rehab Orders: Sternal Precautions, Evaluation for Physical Therapy, Evaluation for Occupational Therapy - Treatments Skin tear care topically daily PRN per policy - Diet Orders No Added Salt (RUDOLPH), Cardiac CERTIFICATION: I certify that the transfer of the above named patient to an Extended Care Facility is necessary for the continuing treatment of the diagnosis listed. The above information is true and accurate reflection of patient's current condition. Confidential - Redisclosure prohibited without a patient's written consent. <Anders Sandoval - Last Filed: 01/30/17 16:59> ExtendedCare Referral Info Provider in Charge after Transfer: PCP Institutional Level of Care: Skilled - Respiratory Orders Smoking Cessation: Smoking cessation has been advised. For more information, call the [place] Tobacco Quit Line at 5-897-UKAN-NOW. CERTIFICATION: I certify that the transfer of the above named patient to an Extended Care Facility is necessary for the continuing treatment of the diagnosis listed. The above information is true and accurate reflection of patient's current condition. Confidential - Redisclosure prohibited without a patient's written consent. I conducted a face to face diagnostic evaluation of this patient and my medical decision-making was reviewed with the Resident Physician, Dr. Umang Silva. I agree with the documented findings, disposition and treatment plan as described.
[2017-01-30] MEDS: levoFLOXacin 500 MG TABLET PO SCH (21:27)
[2017-01-31] MEDS: *HR* HYDROcodone/Acet 5/325 mg TABLET PO PRN ×2 (00:38→07:39)
--- NOTE | 2017-01-31 07:32 | Cardiothoracic Progress Note ---
Date of Encounter: 01/31/17 Time of Encounter: 07:19 - Assessment and plan (1) Diastolic CHF, acute on chronic Current Visit: Yes Status: Acute The patient remained hemodynamically stable overnight. He had no further complaints of shortness of breath, left precordial chest pain, or left leg pain last night. His venous duplex revealed a left peroneal vein DVT in the chest CTA revealed bilateral pulmonary emboli. He is on Eliquis for require long-term anticoagulation. He will be transferred to an inpatient rehabilitation facility later today. The assessment and plan as outlined above was discussed with the patient and/or family members who expressed understanding and agreement. All questions were answered. - Subjective Interval history: The patient remained hemodynamically stable overnight. He is breathing comfortably. Vital Signs, Last 4 Hours Temp Pulse Resp BP Pulse Ox 01/31/17 04:23 98.4 F 84 16 99/67 98 Oxgyen Flow Rate Oxygen Flow Rate (LPM) 2 Clinical Data, last 8 Hours Output, Urine Amount 200 Output, Urine Amount 850 Weight 01/29/17 01/30/17 01/31/17 23:59 23:59 23:59 Weight 73.198 kg 71.3 kg - Physical Examination General: Conversant, No Apparent Distress Neck: No JVD, Normal carotid pulses Cardiac: Reg Rate and Rhythm, Normal S1 and S2, No Murmur Incision: No signs of infection, Dry/intact dressing Sternum: Stable Lungs: Normal Breath Sounds, No Wheeze, Rales, Rhonchi Neuro: Alert and responsive, No focal deficits noted Vascular: Normal capillary refill Extremities: No Clubbing, No Cyanosis, No Edema, Normal Pulses - Labs 01/29/17 02:45 01/27/17 02:20 Consult Discharge Plan - Plan Additional Instructions: Please resume your home medications. Please take Lasix twice a day. Please take apixiban 10 mg twice a day for 4 more days and then 5 mg twice a day thereafter. Please participate in physical therapy as tolerated. Please follow-up with cardiothoracic surgery, cardiology, urology as scheduled. Please return for any new or worsening symptoms. Referrals: Dylon Enamorado MD [Primary Care Provider] - (Patient will follow up with [facility] PCP until dischrged from there) Varinder Evans DO [Partnered Physician] - 02/14/17 3:30 pm (As scheduled) Haylee Espinoza MD [Partnered Physician] - 02/22/17 1:00 pm (As scheduled) Krunal Rouse MD [Partnered Physician] - (2 weeks) Prescriptions: OxyCODONE/APAP 5/325 [Percocet 5/325 MG] 1 each PO Q4HR PRN #20 tablet PRN Reason: Severe Pain Apixaban [Eliquis] 5 mg PO BID #60 tablet LORazepam [Ativan] 0.5 mg PO TID PRN #15 tablet PRN Reason: Anxiety
[2017-01-31] MEDS: Furosemide 20 MG TABLET PO SCH (07:40)
--- NOTE | 2017-01-31 08:30 | Physician Discharge Referral ---
<Umang Silva - Last Filed: 01/31/17 08:28> ExtendedCare Referral Info Transfer To: [facility] Institutional Level of Care: Skilled - Diagnosis (1) Pulmonary embolism Priority: Primary Status: Acute (2) Left leg DVT Priority: Primary Status: Acute (3) NSTEMI (non-ST elevated myocardial infarction) Priority: Primary Status: Acute (4) Diastolic CHF, acute on chronic Priority: Primary Status: Acute (5) Hyperlipidemia Priority: Secondary Status: Chronic (6) Bilateral pleural effusion Priority: Secondary Status: Chronic (7) Pneumonia Priority: Secondary Status: Acute (8) Urinary retention Priority: Secondary Status: Chronic Prognosis: Fair Aware of Diagnosis: Patient Aware of Prognosis: Patient - Transfer Medications Prescriptions: OxyCODONE/APAP 5/325 [Percocet 5/325 MG] 1 each PO Q4HR PRN #20 tablet PRN Reason: Severe Pain Apixaban [Eliquis] 5 mg PO BID #60 tablet LORazepam [Ativan] 0.5 mg PO TID PRN #15 tablet PRN Reason: Anxiety Home Medications: Aspirin Enteric Coated [Aspirin EC] 81 mg PO DAILY #60 tablet.dr 01/18/17 [Rx] Atorvastatin [Lipitor] 80 mg PO HS #60 tablet 01/18/17 [Rx] Clopidogrel [Plavix] 75 mg PO DAILY #30 tablet 01/18/17 [Rx] MOM Conc [MILK OF MAGNESIA conc] 10 ml PO DAILY PRN ud.liq 01/18/17 [Rx] Apixaban [Eliquis] 5 mg PO BID #60 tablet 01/30/17 [Rx] Apixaban [Eliquis] 10 mg PO BID #9 tablet 01/30/17 [Rx] Carvedilol [Coreg] 3.125 mg PO BIDWM tablet 01/30/17 [Rx] Docusate [Colace] 100 mg PO BID PRN capsule 01/30/17 [Rx] Finasteride [Proscar] 5 mg PO DAILY tablet 01/30/17 [Rx] Furosemide [Lasix] 20 mg PO BIDDIURETIC tablet 01/30/17 [Rx] LORazepam [Ativan] 0.5 mg PO TID PRN #15 tablet 01/30/17 [Rx] Nitroglycerin 0.4 mg SL Q5MIN PRN tab.subl 01/30/17 [Rx] OxyCODONE/APAP 5/325 [Percocet 5/325 MG] 1 each PO Q4HR PRN #20 tablet 01/30/17 [Rx] Tamsulosin [Flomax] 0.4 mg PO DAILY capsule 01/30/17 [Rx] levoFLOXacin [Levaquin] 500 mg PO Q24H #4 tablet 01/30/17 [Rx] Allergies/Adverse Reactions: 3 Allergy/AdvReac Type Severity Reaction Status Date / Time No Known Allergies Allergy Verified 12/28/14 09:41 - Respiratory Orders Oxygen / L per min (2) Smoking Cessation: Smoking cessation has been advised. For more information, call the [place] [employer] Quit Line at 0-714-JNAP-NOW. - Lab Orders Lab Orders: CBC (to be drawn on 02/05/17), Other (include drug levels w/ frequency) (BMP to be drawn on 02/05/17) - Ancillary Orders May use pressure relief devices daily prn, May consult with Dentist, Dividing Machine Operator Helper, Carbonation Equipment Tender PRN - Advance Directives Code Status: Full Code - Rehabiliation Orders Rehab Potential: Fair Rehab Orders: Sternal Precautions, Evaluation for Physical Therapy, Evaluation for Occupational Therapy - Treatments Skin tear care topically daily PRN per policy List/Other: Record weight daily. Moisturizing lotion to hands and feet TID - Diet Orders No Added Salt (RUDOLPH), Cardiac CERTIFICATION: I certify that the transfer of the above named patient to an Extended Care Facility is necessary for the continuing treatment of the diagnosis listed. The above information is true and accurate reflection of patient's current condition. Confidential - Redisclosure prohibited without a patient's written consent. <Anders Sandoval - Last Filed: 02/01/17 07:54> ExtendedCare Referral Info Provider in Charge after Transfer: PCP Institutional Level of Care: Skilled - Respiratory Orders Smoking Cessation: Smoking cessation has been advised. For more information, call the [employer] Quit Line at 9-494-QJXL-NOW. CERTIFICATION: I certify that the transfer of the above named patient to an Extended Care Facility is necessary for the continuing treatment of the diagnosis listed. The above information is true and accurate reflection of patient's current condition. Confidential - Redisclosure prohibited without a patient's written consent. I conducted a face to face diagnostic evaluation of this patient and my medical decision-making was reviewed with the Resident Physician, Dr. Umang Silva. I agree with the documented findings, disposition and treatment plan.
--- NOTE | 2017-01-31 09:08 | Internal Med Progress Note ---
<Umang Silva Sarah - Last Filed: 01/31/17 09:06> Date of Encounter: 01/31/17 Time of Encounter: 09:06 - Assessment and plan (1) Pulmonary embolism Status: Acute Assessment and plan: Patient is stable for discharge, please refer to yesterday's discharge summary for complete discharge documentation. Stable. Appears to be improving. Still requiring oxygen therapy. Continue Eliquis Qualifiers: Pulmonary embolism type: other Chronicity: acute Acute cor pulmonale presence: without acute cor pulmonale Qualified Code(s): I26.99 - Other pulmonary embolism without acute cor pulmonale (2) Left leg DVT Status: Acute Assessment and plan: Continue Eliquis today Qualifiers: Affected thrombotic vein of extremity: other lower extremity vein Chronicity: acute Qualified Code(s): I82.492 - Acute embolism and thrombosis of other specified deep vein of left lower extremity (3) NSTEMI (non-ST elevated myocardial infarction) Status: Acute Assessment and plan: Troponin peaked at 1.14 and trending down Echo did not show any wall motion abnormalities Mostly demand ischemia (4) Diastolic CHF, acute on chronic Status: Acute (5) Hyperlipidemia Status: Chronic Qualifiers: Hyperlipidemia type: mixed hyperlipidemia Qualified Code(s): E78.2 - Mixed hyperlipidemia (6) Bilateral pleural effusion Status: Chronic (7) Pneumonia Status: Acute Qualifiers: Qualified Code(s): J18.9 - Pneumonia, unspecified organism (8) Urinary retention Status: Chronic - Subjective Interval history: Patient seen and examined at bedside. Patient states that he feels better today. He still feels weak but is ready to go to rehabilitation to continue his rehabilitation and therapy. - Constitutional Vitals: Temp Pulse Resp BP Pulse Ox 98.1 F 86 17 98/64 98 01/31/17 07:24 01/31/17 07:24 01/31/17 07:24 01/31/17 07:24 01/31/17 07:24 General appearance: Present: A&O X 3, no acute distress, answers questions appropriately - Respiratory Respiratory exam: Present: decreased breath sounds (Left basilar, otherwise clear). Absent: rales, rhonchi, wheezes - Cardiovascular Cardiovascular exam: Present: RRR. Absent: gallop, rubs, systolic murmur - GI/Abdominal GI/Abdominal exam: Present: normal bowel sounds, soft. Absent: distended, tenderness - Extremities Exam Extremities exam: Present: pedal edema (1+ bilaterally), warm. Absent: tenderness - Neurological Exam Neurological exam: Present: alert, CN II-XII intact, oriented X3, no focal deficits Internal Medicine: Result - Labs CBC & Chem 7: 01/29/17 02:45 01/27/17 02:20 - ABG Interpretation ABG results: PT/INR, D-dimer PT 15.5 Seconds (9.4-12.1) H 01/24/17 09:24 Consult Discharge Plan - Plan Additional Instructions: Please resume your home medications. Please take Lasix twice a day. Please take apixiban 10 mg twice a day for 4 more days and then 5 mg twice a day thereafter. Please participate in physical therapy as tolerated. Please follow-up with cardiothoracic surgery, cardiology, urology as scheduled. Please return for any new or worsening symptoms. Referrals: Dylon Enamorado MD [Primary Care Provider] - (Patient will follow up with [facility] until dischrged from there) Varinder Evans DO [Partnered Physician] - 02/14/17 3:30 pm (As scheduled) Haylee Espinoza MD [Partnered Physician] - 02/22/17 1:00 pm (As scheduled) Krunal Rouse MD [Partnered Physician] - (2 weeks) Prescriptions: OxyCODONE/APAP 5/325 [Percocet 5/325 MG] 1 each PO Q4HR PRN #20 tablet PRN Reason: Severe Pain Apixaban [Eliquis] 5 mg PO BID #60 tablet LORazepam [Ativan] 0.5 mg PO TID PRN #15 tablet PRN Reason: Anxiety <Anders Sandoval - Last Filed: 02/01/17 07:59> Date of Encounter: 01/31/17 - Constitutional Vitals: Temp Pulse Resp BP Pulse Ox 98.1 F 86 17 98/62 98 01/31/17 07:24 01/31/17 07:24 01/31/17 07:24 01/31/17 10:37 01/31/17 07:24 Internal Medicine: Result - Labs CBC & Chem 7: 01/29/17 02:45 01/27/17 02:20 - ABG Interpretation ABG results: PT/INR, D-dimer PT 15.5 Seconds (9.4-12.1) H 01/24/17 09:24 - Attending Attestation I conducted a face to face diagnostic evaluation of this patient and my medical decision-making was reviewed with the Resident Physician, Dr. Umang Silva. I agree with the documented findings, disposition and treatment plan as described except to the extent set forth below: Patient reports improvement and shortness of breath and chest pain compared to yesterday. On exam he is in no acute distress awake alert oriented. Heart is regular. Lower extremity exam demonstrates 1+ bilateral pitting edema. Plan: Patient is medically stable for discharge to subacute rehabilitation.
[2017-01-31] MEDS: APIXABAN 5 MG TABLET PO SCH (09:45)
[2017-01-31] MEDS: Finasteride 5 MG TABLET PO SCH (09:45)
[2017-01-31] MEDS: Aspirin Enteric Coated 81 MG Tablet PO SCH (09:45)
[2017-01-31 10:38] VITALS: BP 98/62
--- NOTE | 2017-01-31 12:43 | Electrocardiograph Report ---
[address] [place] [address] Test Date: 2017-01-28 Pat Name: Vilma San Department: 112 Room: 2A12 Gender: M [facility] [employer] Service Worker: ABDIRAHMAN : 1945 Requested By: Wilma Clayton Order Number: [id number] Reading MD: Kd Myrick MD Measurements Intervals [place] Rate: 84 P: 13 KS: 138 QRS: 19 QRSD: 97 T: -83 QT: 394 QTc: 435 Interpretive Statements SINUS RHYTHM LATERAL ISCHEMIA Electronically Signed On 01-31-2017 12:41:38 EST by Kd Myrick MD
== END 2017-01-31 10:53 | DRG 291 ==
LOC: EMEROO 13:26 → 2ANU 13:26 → SUATTDRO 16:43 → 2ANU 18:14
PROVIDERS: ADMIT Family Medicine; ATTEND Internal Medicine